=== PATIENT | female | born 1970 | race Caucasian/White ===

== ENCOUNTER 2022-07-09 00:59 | Day surgery (SDC) | payer OTHER, SELFPAY ==
[2022-06-30 16:00] VITALS: BMI 25.1
--- NOTE | 2022-07-08 13:25 | PM.HPGS ---
History of Present Illness History of Present Illness Consent: Risks, benefits, and alternatives have been discussed and questions answered. Patient agrees to proceed with procedure. Chief complaint: hx of colon polyps Narrative: Tamara Phillips is a 52 year old female who had a large sigmoid colon polyp removed about 3 years ago. Review of Systems Review of Systems: All systems reviewed & are unremarkable except as noted in HPI and below PMFSH Social History Social History Years smoked: 30 Smoking status: Current every day smoker Tobacco type: cigarettes Alcohol intake: current Alcohol use details: 1-2 glasses of wine each evening Substance use: never Substance use type: does not use Living arrangements: with family Spiritual care concerns: No Meds Home Medications and Allergies Home Medications Medication Instructions Recorded Confirmed Type fluoxetine 10 mg capsule 10 mg PO DAILY 06/30/22 07/09/22 History Allergies Allergy/AdvReac Type Severity Reaction Status Date / Time bupropion Allergy Mild HIVES Verified 07/09/22 09:58 Penicillins Allergy Unknown HIVES Verified 07/09/22 09:58 Exam Resp: Auscultation: clear to auscultation bilaterally Cardio: Rate: regular rate Rhythm: regular rhythm GI: GI Palp: Yes Soft to palpation and No Tenderness to palpation present (GI) Assessment and Plan Assessment and plan (1) Colon cancer screening: Code(s): Z12.11 - Encounter for screening for malignant neoplasm of colon Status: Acute Assessment and Plan: Colonoscopy with possible biopsy or polypectomy or cautery or injection of substances. (2) Personal history of colonic polyps: Code(s): Z86.010 - Personal history of colonic polyps Status: Acute
[2022-07-09 10:00] VITALS: BP 93/67; PULSE 76; RESP 16; TEMP 36.9; O2SAT 100
--- NOTE | 2022-07-09 10:05 | SUR.PREOP ---
PT STATED MENOPAUSE SINCE AGE 34
[2022-07-09] MEDS: LACTATED RINGERS 1,000 ML 150 ML IV CONT (10:11)
--- NOTE | 2022-07-09 10:38 | P.PNAN_ITS ---
Anes - Initial Pre Proc Eval Procedure: Operation Date: 07/09/22 11:00 Proposed Procedures p Screening Colonoscopy - Basil Michele MD Date/Time: 07/09/22 10:38 Surgeon: Basil Michele MD Pre Op Diagnosis: hx of colon polyps Patient Data Age: 52 Gender: F Height: 1.7 m Weight: 71.7 kg Last Vital Signs Temp 98.5 F 07/09/22 10:00 Pulse 76 07/09/22 10:00 Resp 16 07/09/22 10:00 BP 93/67 L 07/09/22 10:00 Pulse Ox 100 07/09/22 10:00 O2 Del Method Room Air 07/09/22 10:00 Allergies Allergy/AdvReac Type Severity Reaction Status Date / Time bupropion Allergy Mild HIVES Verified 07/09/22 09:58 Penicillins Allergy Unknown HIVES Verified 07/09/22 09:58 Home Medications Medication Instructions Recorded Confirmed Type fluoxetine 10 mg capsule 10 mg PO DAILY 06/30/22 07/09/22 History Patient hx anesthesia problems: none Family hx anesthesia problems: none Results Review: All pre-operative results and documents have been reviewed as part of the pre- operative evaluation. [facility] Social History Social History Years smoked: 30 Smoking status: Current every day smoker Tobacco type: cigarettes Alcohol intake: current Alcohol use details: 1-2 glasses of wine each evening Substance use: never Substance use type: does not use Living arrangements: with family Spiritual care concerns: No Anes - Eval Final PreProcedure Day of Procedure 07/09/22 10:38 Patient weight: normal Heart: regular rate and rhythm Lungs: clear to auscultation Airway: Mallampati scale class II Neurological: alert and oriented Last oral intake: >/= 8 hours ASA classification: II Emergent: no Anesthetic plan: proceed Anesthesia type and monitoring: general GIVS and standard monitoring Results Review: All pre-operative results and documents have been reviewed as part of the pre- operative evaluation. Informed Consent: The patient's anesthetic plan and its attendant risks and benefits were discussed with the patient/family/POA. Questions were solicited and answers provided to the satisfaction of the patient/family/POA.
[2022-07-09 11:15] VITALS: BP 122/79; PULSE 75; RESP 20; O2SAT 100
[2022-07-09 11:25] VITALS: BP 125/76; PULSE 63; RESP 27; O2SAT 100
[2022-07-09 11:35] VITALS: BP 135/88; PULSE 56; RESP 17; O2SAT 100
== END 2022-07-09 11:47 | disposition home or self-care (01) ==
PROVIDERS: PCP Physician Assistant; Visit Provider Internal Medicine Gastroenterology
PROC: 0DJD8ZZ Inspection of Lower Intestinal Tract, Via Natural or Artificial Opening Endoscopic (ICD-10-PCS; CPT 45378; principal; 2022-07-09 11:00)
DX: Z12.11 Encounter for screening for malignant neoplasm of colon (principal); D12.5 Benign neoplasm of sigmoid colon; K62.1 Rectal polyp; K57.30 Diverticulosis of large intestine without perforation or abscess without bleeding; F17.210 Nicotine dependence, cigarettes, uncomplicated; K63.5 Polyp of colon
CPT/HCPCS: 45380; 88305; J2704; J7120

== ENCOUNTER 2024-10-01 06:45 | Emergency (ER) | payer OTHER, SELFPAY ==
--- NOTE | ~2024-10-01 | XR_ITS ---
Left foot Technique: AP, oblique, and lateral views were obtained. Clinical History: Injury Findings: No acute fracture or dislocation is seen. Osseous alignment is anatomic. Joint spaces are p reserved without erosive or degenerative change. Soft tissues are unremarkable. Impression: Unremarkable left foot radiographs. Reviewed, dictated and finalized at location . [facility] Impression: Unremarkable left foot radiographs.
[2024-10-01 06:50] VITALS: BP 133/77; PULSE 91; RESP 18; TEMP 36.6; O2SAT 100
--- NOTE | 2024-10-01 07:37 | PC.NURSE ---
Xray at bedside
--- NOTE | 2024-10-01 07:37 | ED.GENADULT ---
HPI - General Adult General Chief complaint: Extremity Injury, Lower Stated complaint: left foot possibly broken? Time Seen by Provider: 10/01/24 06:52 History of Present Illness HPI narrative: 54-year-old female presents to the emergency department for evaluation for left foot pain. Patient reports she was walking up stairs last night when she missed a step and injured her foot. Patient states he did not have immediate pain but did go to bed and woke up and had more intense pain in the left mid foot. patient does report pain with weight-bearing. Patient denies any other pain or injury. Patient denies striking head denies loss of consciousness. Related Data Home Medications Medication Instructions Recorded Confirmed fluoxetine 10 mg capsule 10 mg PO DAILY 06/30/22 07/09/22 Allergies Allergy/AdvReac Type Severity Reaction Status Date / Time bupropion Allergy Mild HIVES Verified 10/01/24 06:49 Penicillins Allergy Unknown HIVES Verified 10/01/24 06:49 Review of Systems Review of Systems: All systems reviewed & are unremarkable except as noted in HPI and below PMFSH Social History Social History Years smoked: 30 Smoking status: Current every day smoker Tobacco type: cigarettes Alcohol intake: current Alcohol use details: 1-2 glasses of wine each evening Substance use: never Substance use type: does not use Living arrangements: with family Spiritual care concerns: No Exam Narrative: APPEARANCE: Well appearing, no pain, no distress, well-nourished. HEAD: normocephalic, atraumatic. EYES: PERRLA/EOMI, conjunctivae clear. NOSE: Normal no drainage EARS:TMS clear with good light reflex. THROAT: Pharynx clear, no exudate. NECK: Supple. No adenopathy, no masses. RESPIRATORY: Airway patent, respirations nonlabored. Clear to auscultation bilaterally, no rales, rhonchi, wheezing. CARDIOVASCULAR: Regular rate and rhythm without murmurs rubs or gallops. ABDOMINAL: Soft, nontender, nondistended, normal bowel sounds MUSCULOSKELETAL: Moves all extremities. Strength/ROM intact, No edema, No calf tenderness. NEURO: Alert. Cranial nerves II through XII intact. Good gait. Good coordination SKIN: Warm, dry. Normal Color Course Vital Signs Vital signs: Vital Signs Temperature 97.8 F 10/01/24 06:50 Pulse Rate 91 10/01/24 06:50 Respiratory Rate 18 10/01/24 06:50 Blood Pressure 133/77 10/01/24 06:50 Pulse Oximetry 100 10/01/24 06:50 Temperature 98 F 10/01/24 09:09 Pulse Rate 80 10/01/24 09:09 Respiratory Rate 16 10/01/24 09:09 Blood Pressure 143/77 H 10/01/24 09:09 Pulse Oximetry 98 10/01/24 09:09 Medical Decision Making MDM Narrative Medical decision making narrative: 54-year-old female presents to the emergency department for evaluation for left midfoot pain. Patient initially had no pain when she stumbled but pain worsened throughout the course of the night. Patient has no evidence of deformity ecchymosis or edema. X-rays were negative for acute fracture dislocation. Patient was provided Jacob wrap and crutches for limited weight-bearing. Suspect foot strain. Patient was updated results of her workup patient was encouraged close follow-up with her primary care physician and with Orthopedics. All questions concerns were addressed. Differential Diagnosis Differential Diagnosis: Foot fracture, foot sprain, foot contusion Vital Signs Vital Signs: Vital Signs Temperature 97.8 F 10/01/24 06:50 Pulse Rate 91 10/01/24 06:50 Respiratory Rate 18 10/01/24 06:50 Blood Pressure 133/77 10/01/24 06:50 Pulse Oximetry 100 10/01/24 06:50 Temperature 98 F 10/01/24 09:09 Pulse Rate 80 10/01/24 09:09 Respiratory Rate 16 10/01/24 09:09 Blood Pressure 143/77 H 10/01/24 09:09 Pulse Oximetry 98 10/01/24 09:09 Imaging Data Radiologist's impression: Impressions Foot X-Ray 10/01/24 07:46 Impression: Unremarkable left foot radiographs. Discharge Plan Discharge Clinical Impression: Strain of foot Patient Disposition: Home, Self-Care Condition: Stable Instructions: Antibiotic Form, Crutch Instructions (ED), Foot Sprain (ED) Additional Instructions: Tylenol and ibuprofen for pain control. crutches for limited weight-bearing. Have close follow-up with primary care physician. If you have any worsening symptoms and please call or return to the emergency department. Prescriptions: No Action fluoxetine 10 mg capsule 10 mg PO DAILY Follow-up/Referrals: Yana,CAL Carr [Primary Care Provider] -
[2024-10-01 09:09] VITALS: BP 143/77; PULSE 80; RESP 16; TEMP 36.6; O2SAT 98
== END 2024-10-01 09:10 | disposition home or self-care (01) ==
PROVIDERS: Emergency Provider Emergency Medicine; PCP Physician Assistant
DX: S96.912A Strain of unspecified muscle and tendon at ankle and foot level, left foot, initial encounter (principal); X58.XXXA Exposure to other specified factors, initial encounter; F17.210 Nicotine dependence, cigarettes, uncomplicated
CPT/HCPCS: 73630; 99283

== ENCOUNTER 2025-01-31 07:29 | Outpatient (CLI) | payer OTHER, SELFPAY ==
--- NOTE | 2025-01-31 | EST_ITS ---
Patient Info Name: Tamara Phillips Age: 55 years : 1970 Gender: Female Ht: 67 in Wt: 150 lbs BSA: 1.80 m2 Exam Date: 01/31/2025 8:52 AM Exam Location: Echo Lab Patient Status: Outpatient Admit Date: 01/31/2025 Staff Ordering Physician: YanaLilly PA-C Attending Provider: YanaLilly PA-C Exercise Technologist: Yolis Sanches RDCS Nurse: Lawanda Hernández APN Exam Type: CA stress test treadmill w NM Study Info Indications R07.9 - Chest pain, unspecified A pharmacological stress test was performed. Summary 1. Exercise capacity fair to good at 6-10 METS. 2. Normal stress test and stress ECG with near maximal exercise. 3. Please correlate with nuclear medicine images, reported separately. Protocol: Kennedy Stress ECG Details Stage: REST Duration (min): 1 min : 23 sec Speed (mph): 0.0 Grade (%): 0 HR (bpm): 72 SBP (mmHg): 140 DBP (mmHg): 93 METS: --- Stage: REST Duration (min): 5 min : 48 sec Speed (mph): 0.0 Grade (%): 0 HR (bpm): 82 SBP (mmHg): 140 DBP (mmHg): 93 METS: --- Stage: STAGE 1 Duration (min): 1 min : 0 sec Speed (mph): 1.7 Grade (%): 10 HR (bpm): 102 SBP (mmHg): 140 DBP (mmHg): 93 METS: --- Stage: STAGE 1 Duration (min): 2 min : 0 sec Speed (mph): 1.7 Grade (%): 10 HR (bpm): 108 SBP (mmHg): 140 DBP (mmHg): 93 METS: --- Stage: STAGE 1 Duration (min): 3 min : 0 sec Speed (mph): 1.7 Grade (%): 10 HR (bpm): 104 SBP (mmHg): 192 DBP (mmHg): 100 METS: --- Stage: STAGE 2 Duration (min): 1 min : 0 sec Speed (mph): 2.5 Grade (%): 12 HR (bpm): 117 SBP (mmHg): 203 DBP (mmHg): 97 METS: --- Stage: STAGE 2 Duration (min): 2 min : 0 sec Speed (mph): 2.5 Grade (%): 12 HR (bpm): 130 SBP (mmHg): 194 DBP (mmHg): 99 METS: --- Stage: STAGE 2 Duration (min): 3 min : 0 sec Speed (mph): 2.5 Grade (%): 12 HR (bpm): 139 SBP (mmHg): 194 DBP (mmHg): 99 METS: --- Stage: STAGE 3 Duration (min): 0 min : 30 sec Speed (mph): 3.4 Grade (%): 14 HR (bpm): 150 SBP (mmHg): 194 DBP (mmHg): 99 METS: --- Stage: RECOVERY Duration (min): 0 min : 29 sec Speed (mph): 0.0 Grade (%): 0 HR (bpm): 143 SBP (mmHg): 208 DBP (mmHg): 99 METS: --- Stage: RECOVERY Duration (min): 1 min : 29 sec Speed (mph): 0.0 Grade (%): 0 HR (bpm): 112 SBP (mmHg): 205 DBP (mmHg): 103 METS: --- Stage: RECOVERY Duration (min): 2 min : 29 sec Speed (mph): 0.0 Grade (%): 0 HR (bpm): 103 SBP (mmHg): 205 DBP (mmHg): 103 METS: --- Stage: RECOVERY Duration (min): 3 min : 29 sec Speed (mph): 0.0 Grade (%): 0 HR (bpm): 101 SBP (mmHg): 183 DBP (mmHg): 104 METS: --- Stage: RECOVERY Duration (min): 4 min : 29 sec Speed (mph): 0.0 Grade (%): 0 HR (bpm): 91 SBP (mmHg): 183 DBP (mmHg): 104 METS: --- Stage: RECOVERY Duration (min): 5 min : 29 sec Speed (mph): 0.0 Grade (%): 0 HR (bpm): 95 SBP (mmHg): 156 DBP (mmHg): 105 METS: --- Stage: RECOVERY Duration (min): 6 min : 29 sec Speed (mph): 0.0 Grade (%): 0 HR (bpm): 92 SBP (mmHg): 155 DBP (mmHg): 104 METS: --- Stage: RECOVERY Duration (min): 7 min : 29 sec Speed (mph): 0.0 Grade (%): 0 HR (bpm): 91 SBP (mmHg): 155 DBP (mmHg): 104 METS: --- Stage: RECOVERY Duration (min): 8 min : 29 sec Speed (mph): 0.0 Grade (%): 0 HR (bpm): 91 SBP (mmHg): 155 DBP (mmHg): 104 METS: --- Stage: RECOVERY Duration (min): 8 min : 46 sec Speed (mph): 0.0 Grade (%): 0 HR (bpm): 90 SBP (mmHg): 146 DBP (mmHg): 104 METS: --- Rest HR: 82 bpm Peak HR: 151 bpm Rest Sys BP: 140 mmHg Peak Sys BP: 208 mmHg Max Pred HR: 164 bpm % Max Pred HR: 92 % Target HR: 139 bpm Max RPP: 31,408 bpm*mmHg Morgan Score: -[address] Seg Deviation: 2 mm Total Time: 6 min : 30 sec Rest Kaba BP: 93 mmHg Peak Kaba BP: 99 mmHg Angina Score: None Total METS: 8.0 Resting ECG Normal sinus rhythm with a ventricular rate of 70 beats per minute. No ischemic ST T wave changes. Stress ECG No abnormal ST/T wave changes with exercise. Arrhythmias None. Report Signatures
--- NOTE | ~2025-01-31 | NM_ITS ---
EXAMINATION: NM stress w perf spect multi DATE: 01/31/2025 10:37 INDICATION: Chest pain. TECHNIQUE: Rest images were obtained following intravenous administration of 11.5 mCi Tc99m tetrofosm in (Myoview). The patient performed an exercise activity. At peak exercise, 34.7 mCi Tc99m tetrofosmi n (Myoview) was administered intravenously, and stress images were obtained. Data was reconstructed i nto short axis and horizontal and vertical long axis SPECT images. Gated SPECT images were also obtai geraldine. COMPARISON: None. FINDINGS: There is no definite reversible or fixed perfusion abnormality to suggest ischemia or infar ction. There is no segmental wall motion abnormality. Left ventricular ejection fraction measures 6 4%. IMPRESSION: 1. No definite ischemia or infarct. 2. Normal left ventricular ejection fraction measuring 64%. Reviewed, dictated and finalized at location B.
--- OUTSIDE RECORDS SUMMARY | 2025-01-31 07:36 | XMS_ITS | Data Portability ---
[facility] Address [address] [place] [address] Care Team Providers Care Guide Visitor Name Role Phone HERMANZENON DOOLEY Primary Care Provider Unavailab le Assessment No assessment recorded. Plan of Treatment Reminders Order Date Submit Date Provider Last Modified By Organization Details Last Modified Time Details Appointments None recorded. Lab TSH + free T4, serum 2024 025 [facility], [address] [place] [address], [address], 5 04:15:04 CMP, serum or plasma 2024 025 [facility], [address] [place] [address], [address], 5 04:15:04 CBC w/ auto diff 2024 025 [facility], [address] [place] [address], [address], 5 04:15:04 cobalamin and folate panel, serum 2024 025 [facility], [address] [place] [address], [address], 5 04:15:04 lipid panel, serum 2024 025 [facility], [address] [place] [address], [address], 5 04:15:03 vitamin D, 25-hydroxy , total, serum 2024 025 [facility], [address] [facility] [address], [place], [address], 04:15:04 HbA1c (hemoglobi n A1c), blood 2024 025 [facility], [address] [facility], [facility] [address], [place], [address], 04:15:03 Referral None recorded. Procedures treadmill nuclear stress test (PROC) - Authorizat ion approved#[id number], effective 01/17/2025 - 03/03/2025 , for procedure code 25709 2024 025 [facility] ([facility] [address], [place], [address], 09:51:35 Surgeries None recorded. Imaging CT, chest, w/ contrast 2024 025 [facility], [address], [place], [address], 18:00:58 Medication Orders fluoxetine 10 mg capsule 2024 025 [id number], [address] [facility], [place], [place], [id number], 11:03:04 Patient TargetsNo targets recorded. Patient InstructionsNo instructions recorded. Reason for Referral None Reported. Problems Name Problem SNOMED Code Status Onset Date Resolution Date Notes Provider Name and Address Organization Details Recorded Time Body mass index 20-24 - normal 788347962 Active 2024 Viv Fuchs MA null, [place] - [facility] 10:24:30 Smoker 32359765 Active 2024 DIANE Cano Attn: Donald g,[address] [facility], [place], [address], [facility] 5 00:54:46 Chest pain 15778465 Active 2024 DIANE Cano Attn: Donald brooks,[address] [place], [address], [facility] 5 00:55:09 Hyperlipidemia 83951203 Active 2024 DIANE Cano Attn: Donald brooks,[address] [place], [address], [facility] - [facility] 5 00:55:17 Long-term drug therapy Active 2024 DIANE Cano Attn: Donald brooks,[address] [place], [address], [facility] - [facility] 5 00:55:27 Feeling irritable 81754428 Active 2024 DIANE Cano Attn: Donald brooks,[address] [place], [address], [facility] - [facility] 5 00:56:00 Problem Notes None recorded. Medical Equipment None Reported. Allergies Allergen ID Allergen Name Allergen Category Reaction Reaction Severity Criticality Documentation Date Start Date Code Code System Note Provider Name and Address Organization Details Recorded Time 144476 Product containin g penicilli n (product) medicatio n Not available Not available Not available 01/10/2025 73429 8001 SNOMED Not Available Not Available Not Available Medications Name Sig Start Date Stop Date Status Note LastModified by Organization Details LastModified Time sulfamethoxazol e 400 mg-trimethoprim 80 mg tablet one tab po bid active Not Available Not Available No t Available fluoxetine 10 mg capsule TAKE 1 CAPSULE BY MOUTH EVERY DAY active Not Available Not Available No t Available Vitals Date Recorded Body height Body mass index (BMI) Body weight Oxygen saturation Oxygen saturation in Arterial blood by Pulse oximetry Heart rate Systolic blood pressure Diastolic blood pressure Provider Name and Address Organization Details Last Updated DateTime 5 170.18 cm 23.9 kg/m2 24478.2 7 g 98 % 98 % 70 /min 140 mm[Hg] 82 mm[Hg] Viv Fuchs MA [place] 10:27:01 Date Recorded Respiratory rate Systolic blood pressure Diastolic blood pressure Provider Name and Address Organization Details Last Updated DateTime 01/10/2025 18 /min 140 mm[Hg] 80 mm[Hg] DIANE Cano Attn: Accounting, [address] [facility], [place], [address], [place] - [facility] 01/10/2025 11:00:45 Social History Question Answer Notes LastModified by Organizat ion Details LastModified Time Tobacco Smoking Status Former Smoker Viv Fuchs MA null, [place] - [facility] 01/10/2025 11:45:30 Do You Have An Advance Directive? Yes Information n ot available 01/10/2025 What Is Your Level Of Alcohol Consumption? Moderate Wine Information not available 01/10/2025 Are You Blind Or Do You Have Difficulty Seeing? Yes Information n ot available 01/10/2025 What Is Your Level Of Caffeine Consumption? Moderate Information not available 01/10/2025 In The 14 Days Before Symptom Onset, Have You Had Close Contact With A Laboratory-confirm ed COVID-19 While That Case Was Ill? No Information n ot available 01/10/2025 In The 14 Days Before Symptom Onset, Have You Had Close Contact With A Person Who Is Under Investigation For COVID-19 While That Person Was Ill? No Information not available 01/10/2025 Have You Been To An Area Known To Be High Risk For COVID-19? No Information not available 01/10/2025 Are You Currently Employed? Yes Information not available 01/10/2025 Are You Deaf Or Do You Have Serious Difficulty Hearing? No Information not available 01/10/2025 What Type Of Diet Are You Following? 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 No Information not available 01/10/2025 What Was The Date Of Your Most Recent Tobacco Screening? 01/10/2025 Information not available 01/10/2025 What Is Your Current Pack Years? 10-19packyear s Information not available 01/10/2025 What Is Your Relationship Status? Information not available 01/10/2025 Do You Use Your Seat Belt Or Car Seat Routinely? Yes Information not available 01/10/2025 Do You Have Smoke And Carbon Monoxide Detectors In Your Home? Yes Information not available 01/10/2025 How Much Tobacco Do You Smoke? No Information not available 01/10/2025 Do You Feel Stressed (tense, Restless, Nervous, Or Anxious, Or Unable To Sleep At Night)? [id number] Information not available 01/10/2025 Do You Use Any Illicit Or Recreational Drugs? No Information not available 01/10/2025 Do You Use Sunscreen Routinely? Yes Information not available 01/10/2025 Has Tobacco Cessation Counseling Been Provided? No Information not available 01/10/2025 Do You Or Have You Ever Used Any Other Forms Of Tobacco Or Nicotine? No Information not available 01/10/2025 Sex: Female Functional Status Question Answer Note LastModified by Organization D etails LastModified Time Are you able to care for yourself? Yes Information n ot available 01/10/2025 What is your exercise level? None Information not available 01/10/2025 Mental Status None recorded. Family History Nothing Reported. Medical History Condition Response Coronary Artery Disease N Other N High Blood Pressure N Atrial Fibrillation N Kidney or Bladder Problems N Thyroid Problems N GI Problems N Depression N COPD N Blood Clots N Have you had a mammogram in the last yea r? N Skin Problems N Anemia N Heart Attack ([place]) N Anxiety Disorder N Diabetes N Muscle, Joint, or Bone Problems N Seizures/Epilepsy N Have you had a colonoscopy in the last 1 0 years? N Acid Reflux (GERD) Y Cancer N Stroke N Asthma N Allergies N Have you had a PSA blood test in the las t year? N High Cholesterol N Hepatitis N Liver Disease N Headaches N Heart Failure N Osteoporosis N Gynecological History Statement/Question Response Menses Monthly N If Post Menopausal, Age at Menopause 46 Obstetrics History GPAL:G 3 P 3 0 0 3 Type Value Multiple Births 0 Full Term 3 Induced 0 Spontaneous 0 Premature 0 Living 3 Total 3 Immunizations Vaccine Type Date Status Note Provider Nam e and Address Organization Details Recorded Time COVID-19, mRNA, LNP-S, PF, 30 mcg/0.3 mL dose 02/15/2021 completed Viv Fuchs MA null, [place] - [facility] 01/10/2025 10:23:39 COVID-19, mRNA, LNP-S, PF, 30 mcg/0.3 mL dose 03/10/2021 completed Viv Fuchs [place] null, [place] - [facility] 01/10/2025 10:23:39 Tdap 09/08/2022 completed AGATA Camargo, [place] - [facility] 01/10/2025 10:23:39 Past Encounters Encounter ID Performer Location Encounter Start Date Encounter Closed Date Diagnosis/Indication Diagnosis SNOMED-CT Code Diagnosis ICD10 Code Diagnosis Note [id number] DIANE Cano [facility] [place] [address] [place] [address] 01/10/2025 09:51:36 01/10/2025 11:22:38 Renewal of prescription 090451282 Z76.0 Refill on fluoxetine 10 mg daily Body mass index 20-24 - normal 910932893 Z68.23 BMI is 23.9 Adult heal th examination 271475821 Z00.01 Annual wellness exam completed with labs ordered fasting Smoker 84574695 F17.200 Patient is smoker. She is not interested in cessation at this time Chest pain 96432470 R07. 9 Refer for treadmill nuclear stress testing with continued episodic chest pain with history of hyperlipid emia and tobacco dependence Hyperlipidemia 96282230 E78.5 Fasting lipid panel is due patient is not currently on any medication Diabetes m ellitus screening 321501171 Z13.1 A1c screening due Thyroid di sorder screening 068903357 Z13.29 Thyroid function testing due Long-term drug therapy 244555092 Z79.891 cmp, cbc and b12, folate labs are due Endocrine/ metabolic screening 510223717 Z13.228 Screening vitamin-D due CT of chest abnormal 772 4371811 1615623 R93.89 Follow-up CT of the chest with contrast is due for a history of abnormalit y in the past that the patient did not follow-up on Feeling irritable 164225 07 R45.4 Patient is stable on fluoxetine 10 mg daily Health Concerns Section Related Observation LastModified by Organization Detai ls LastModified Time None Recorded Concern Status LastModified by Organization Details LastModified Time None Recorded Advance Directives Directive Y: Payers Encounter Date Sequence Insurance Name Policy Number Policy Darby Covered Member ID Darby Member ID Guarantor Name 01/10/2025 1 [facility] [id number] Tamara Phillips [id number] Tamara Jenny Phillips Notes Date Note Type Note Provider Name and Address Organization Details Recorded Time 01/10/20 25 text/ht ml Angina/Chest PainReported bypatient.Location:chest;radiates to the left arm Quality:pressure;heaviness Severity:not limiting Duration:lasts seconds Onset/Timing:has noted for months Context:exertional;at rest Alleviating Factors:nothing gives relief Aggravating Factors:nothing makes it worse Associated Symptoms:no dyspnea; no decrease in exercise capacity; no fatigue; no nocturnal episodes; no resting episodes; no associated palpitations; no associated dizzinessAnxiety/DepressionReport ed bypatient.Notes:Patient takes fluoxetine 10 mg daily and is stable without any acute complaints or concernsHyperlipidemiaReported bypatient.Notes:Patient has a history of hyperlipidemia but has declined any medication to this point Patient is here to reestablish and have her annual wellness exam with labs ordered. DIANE Cano Attn: Accounting, [address] [place], [address], [place] - [facility] 01/21/2025 00:56:18 OBGyn Episode No OBEpisode recorded.
--- OUTSIDE RECORDS SUMMARY | 2025-01-31 07:36 | XMS_ITS | Data Portability ---
Author Organization [place] - [facility] [employer], Main Office Address [address] [place] [address] Assessment Encounter Date Assessment Date Assessment LastModified by Organization Details LastModified Time 07/29/2023 07/29/2023 mammogram was today colonoscopy polyps repeat 2024 pap smear UTD [email or web address] Not available 07/29/2023 16:26:22 Plan of Treatment Reminders Order Date Submit Date Provider Last Modified By Organization Details Last Modified Time Details Appointments None recorded. Lab lipid panel, serum 2022 024 [email or web address] Not available 4 09:49:24 CMP, serum or plasma 2022 024 [email or web address] Not available 4 09:49:24 Referral None recorded. Procedures None recorded. Surgeries None recorded. Imaging exercise stress echocardiog isa 2022 023 [email or web address] 4 [facility], [address] [place] [address] [address], [place], [address], 4 14:28:34 Medication Orders sulfamethox azole 800 mg-trimetho prim 160 mg tablet 2022 023 [id number], [address], [place], [id number], 3 16:16:51 rosuvastati n 5 mg tablet 2022 023 [id number], [address], [place], [id number], 3 16:16:51 Patient TargetsNo targets recorded. Patient InstructionsNo instructions recorded. Reason for Referral None Reported. Results Created Date Observation Date Name Description Value Unit Range Abnormal Flag Note LastModifiedBy Organization Detail LastModifiedTime 05/14/20 22 05/14/2022 CT, chest , w/o contr ast No observ ation record ed. [id number] [place] [address], [place], [address], 01/19/2023 16:58:31 05/17/20 22 05/14/2022 MAMMO , scree carol ann, digit al, bilat eral No observ ation record ed. [id number] [facility] [address] , [place], [address], 01/19/2023 16:58:31 07/13/20 22 07/09/2022 colon oscop y scree carol ann (PROC ) No observ ation record ed. [email or web address] [facility] [address] [facility], [place], [address], 07/29/2023 15:58:11 Result Notes None recorded. 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 Not Available [facility] 3 16:56:50 Fracture of calcaneus 852610739 Active Not Available [facility] 3 16:56:51 Vitamin D deficiency 36073313 Active Not Available [facility] 3 16:56:51 Fever 080149098 Active Not Available [facility] 3 16:56:51 Postviral cough 756553097 Active 2021 Not Available [facility] 3 16:56:51 Multiple nodules of lung 855129046 Active 2021 Not Available [facility] 3 16:56:51 Viral syndrome 563801747 Active Not Available [facility] 3 16:56:51 Anxiety 21580316 Active 2021 Not Available [facility] 3 16:56:51 Feeling irritable 71344725 Active 2021 Not Available [facility] 3 16:56:51 Mixed hyperlipid emia 173848952 Active 2022 DIANE Cano [address], [address], [place], [address] , [employer] 3 16:14:37 Atypical chest pain 245273755 Active 2022 DIANE Cano [address], [address], [place], [address] , [employer] 3 16:15:23 Superficia l injury of hand with infection 21107787 Active 2022 DIANE Cano [address], [address], [place], [address] , [employer] 3 16:16:17 Problem Notes None recorded. Procedures Surgical History Date Name Laterality Status Provider Name and Address Organization Details Recorded Time 07/09/20 22 colonoscopy completed Not Available [facility] 01/20/20 16:55:42 08/15/20 19 Date of Last Colonoscopy completed Not Available [facility] 01/19/2023 16:55:41 08/15/20 19 Colonoscopy completed Not Available [facility] 01/20/20 23 16:55:42 02/11/20 15 Most Recent Bone Density completed Not Available [facility] 01/19/2023 16:55:41 11/21/18 80 Brain Surgery completed Not Available [facility] 2022 16:55:42 Imaging Results Imaging Date Name Status LastModified by Organiz ation Details LastModified Time 05/14/2022 MAMMO, screening, digital, bilateral completed [id number] [facility] [address] , [place], [address], 01/19/2023 16:58:31 05/14/2022 CT, chest, w/o contrast completed [id number] [facility] [address], [place], [address], 01/19/2023 16:58:31 07/09/2022 colonoscopy screening (PROC) completed [address] - [address], [place], [address], 07/29/2023 15:58:11 Procedure Notes None recorded. Medical Equipment None Reported. Allergies Allergen ID Allergen Name Allergen Category Reaction Reaction Severity Criticality Documentation Date Start Date Code Code System Note Provider Name and Address Organization Details Recorded Time 27323 Product containin g penicilli n (product) medicatio n hives Not available Not available 01/19/2023 30079 8001 SNOMED Not Available [facility] 16:58:27 Medications Name Sig Start Date Stop Date Status Note LastModified by Organization Details LastModified Time doxycycline hyclate 100 mg capsule Take 1 capsule twice a day by oral route with meals. active Not Available Not Available No t Available desoximetas one 0.25 % topical cream APPLY A THIN LAYER TO THE AFFECTED AREA(S) BY TOPICAL ROUTE 2 TIMES PER DAY ; RUB IN GENTLY AND COMPLETEL Y active Not Available Not Available No t Available clindamycin HCl 300 mg capsule TK 1 C PO TID TAT 03/19 completed Not Available Not Available Not Available azithromyci n 250 mg tablet TAKE 2 TABLETS (500 MG) BY ORAL ROUTE ONCE DAILY FOR 1 DAY THEN 1 TABLET (250 MG) BY ORAL ROUTE ONCE DAILY FOR 4 DAYS 06/21 completed Not Available Not Available Not Available benzonatate 200 mg capsule Take 1 capsule 3 times a day by oral route. active Not Available Not Available No t Available Medrol (Blake) 4 mg tablets in a dose pack Take by oral route as directed 07/19 completed Not Available Not Available Not Available prednisone 20 mg tablet 06/12 completed Not Available Not Available Not Available clindamycin HCl 150 mg capsule active Not Available Not Available Not Available Tamiflu 75 mg capsule Take 1 capsule every day by oral route. active Not Available Not Available No t Available sulfamethox azole 800 mg-trimetho prim 160 mg tablet TAKE 1 TABLET BY MOUTH EVERY 12 HOURS WITH MEALS active Not Available Not Available No t Available fluoxetine 10 mg capsule TAKE 1 CAPSULE BY MOUTH EVERY DAY 2022 active Not Available Not Available Not Avai lable codeine 10 mg-guaifene sin 100 mg/5 mL oral liquid TAKE 10 ML BY MOUTH EVERY 4 TO 6 HOURS NEEDED 07/19 completed Not Available Not Available Not Available cefuroxime axetil 500 mg tablet Take 1 tablet every 12 hours by oral route. 07/19 completed Not Available Not Available Not Available hydrocodone 10 mg-chlorphe niramine 8 mg/5 mL oral susp extend.rel 12hr Take 5 mL as needed by oral route at bedtime. active Not Available Not Available No t Available Vitamin D2 1,250 mcg (50,000 unit) capsule take one capsule PO once weekly 02/21 completed Not Available Not Available Not Available ezetimibe 10 mg tablet TK 1 T PO QD IN THE DREA 03/06 completed Not Available Not Available Not Available rosuvastati n 5 mg tablet TAKE 1 TABLET BY MOUTH EVERY DAY AT BEDTIME active Not Available Not Available No t Available nitrofurant oin monohydrate /macrocryst als 100 mg capsule TAKE 1 CAPSULE BY MOUTH EVERY 12 HOURS WITH MEALS FOR 7 DAYS 07/29 completed Not Available Not Available Not Available Vitamin D3 2019 active Not Available Not Available Not Avai lable Symbicort 80 mcg-4.5 mcg/actuati on HFA aerosol inhaler Inhale 2 puffs twice a day by inhalatio n route. active Not Available Not Available No t Available Suprep Bowel Prep Kit 17.5 gram-3.13 gram-1.6 gram oral solution MIX AND DRINK UTD 03/19 completed Not Available Not Available Not Available Chantix Starting Month Box 0.5 mg (11)-1 mg (42) tablets in dose pack use as directed 03/06 completed Not Available Not Available Not Available Vicodin ES 7.5 mg-300 mg tablet active Not Available Not Available No t Available Vitamin B12 takes daily 2015 active Not Available Not Available Not Kylie labemile Vitals Date Recorded Body mass index (BMI) Body height Oxygen saturation Oxygen saturation in Arterial blood by Pulse oximetry Heart rate Respiratory rate Body temperature Body weight Systolic blood pressure Diastolic blood pressure Provider Name and Address Organization Details Last Updated DateTime 1 24.7 kg/m2 170.82 cm 98 % 98 % 94 /min 16 /min 97.9 [degF] 23463.1 9 g 128 mm[Hg] 76 mm[Hg] Not Available [facility] 3 16:56:01 Date Recorded Body mass index (BMI) Body height Oxygen saturation Oxygen saturation in Arterial blood by Pulse oximetry Heart rate Respiratory rate Body temperature Body weight Systolic blood pressure Diastolic blood pressure Provider Name and Address Organization Details Last Updated DateTime 2 26.4 kg/m2 170.82 cm 97 % 97 % 83 /min 16 /min 97.5 [degF] 30679.2 7 g 120 mm[Hg] 80 mm[Hg] Not Available [facility] 3 16:56:01 Date Recorded Body weight Body mass index (BMI) Body height Body temperature Heart rate Oxygen saturation Oxygen saturation in Arterial blood by Pulse oximetry Systolic blood pressure Diastolic blood pressure Provider Name and Address Organization Details Last Updated DateTime 3 19732.9 6 g 25.4 kg/m2 170.18 cm 97.8 [degF] 77 /min 98 % 98 % 124 mm[Hg] 70 mm[Hg] Chantal Estes RN [facility] [employer] 3 15:50:06 Date Recorded Systolic blood pressure Diastolic blood pressure Provider Name and Address Organization Details Last Updated DateTime 07/29/2023 110 mm[Hg] 70 mm[Hg] DIANE Cano [address], [facility] [address], [place], [address], [place] [facility] [employer] 07/29/2023 16:26:30 Social History Question Answer Notes LastModified by Organizat ion Details LastModified Time Tobacco Smoking Status Former Smoker Not Available [facility] 01/19/2023 16:55:33 What Is Your Level Of Alcohol Consumption? Moderate [id number] Information not available 01/19/2023 What Is Your Level Of Caffeine Consumption? Moderate [id number] Information not available 01/19/2023 How Much Tobacco Do You Chew? None [id number] 5172 Information not available 01/19/2023 In The 14 Days Before Symptom Onset, Have You Had Close Contact With A Laboratory-confir med COVID-19 While That Case Was Ill? No MIGRATION.[id number] 3388 Information not available 01/19/2023 In The 14 Days Before Symptom Onset, Have You Had Close Contact With A Person Who Is Under Investigation For COVID-19 While That Person Was Ill? No [id number].312110 8174 Information not available 01/19/2023 Are You Currently Employed? Yes [email or web address] Information not available 07/28/2023 What Type Of Diet Are You Following? REGULAR [id number].[id number] 4711 Information not available 01/19/2023 Do You Or Have You Ever Used E-cigarettes Or Vape? 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 No MIGRATION.057037 9289 Information not available 01/19/2023 Are There Any Guns Present In Your Home? Yes MIGRATION.115156 3139 Information not available 01/19/2023 Do You Use Insect Repellent Routinely? No [email or web address] Information not available 07/28/2023 What Was The Date Of Your Most Recent Tobacco Screening? 03/06/2021 [id number].[id number] 4122 Information not available 01/19/2023 What Is Your Relationship Status? MIGRATION.617796 8521 Information not available 01/19/2023 Do You Use Your Seat Belt Or Car Seat Routinely? Yes MIGRATION.913968 2355 Information not available 01/19/2023 Do You Have Smoke And Carbon Monoxide Detectors In Your Home? Yes MIGRATION.233877 7624 Information not available 01/19/2023 Are You Passively Exposed To Smoke? No MIGRATION.795854 9055 Information not available 01/19/2023 Do You Or Have You Ever Used Smokeless Tobacco? Never Used Smokeless Tobacco MIGRATION.680253 7458 Information not available 01/19/2023 How Much Tobacco Do You Smoke? No MIGRATION.807498 0034 Information not available 01/19/2023 Do You Use Any Illicit Or Recreational Drugs? No MIGRATION.310567 9449 Information not available 01/19/2023 Do You Use Sunscreen Routinely? Yes [email or web address] Information not available 07/28/2023 Have You Recently Traveled Abroad? No MIGRATION.358323 2179 Information not available 01/19/2023 Do You Have Any Dietary Restrictions? No MIGRATION.969868 8837 Information not available 01/19/2023 Do You Or Have You Ever Used Any Other Forms Of Tobacco Or Nicotine? No MIGRATION.214603 7771 Information not available 01/19/2023 Sex: Unknown Functional Status Question Answer Note LastModified by Organizat ion Details LastModified Time What is your exercise level? Heavy [id number] Information not available 01/19/2023 Mental Status None recorded. Family History Relationship Description Onset Age of this Age Resolved Age Notes LastModified by Organization Details LastModified Time Maternal Grandmother Malignant tumor of lung [email or web address] Not available 06/2023 15:45:55 Maternal Grandfather Myocardial infarction [id number] Not available 01/19/2023 16:55:42 Paternal Grandmother Cerebrovascu lar accident [email or web address] Not available 07/29/2023 15:45:55 Paternal Grandmother Hypertensive disorder [id number] Not available 01/19/2023 16:55:42 Father No current problems or disability [email or web address] Not available 15:45:55 Father General health good [email or web address] Not available 0 07/29/2023 15:45:55 Mother No current problems or disability [email or web address] Not available 15:45:55 Medical History Condition Response CANCER: SPECIFY Y DEPRESSION (INCLUDING POST ) Y HYPERTENSION N Gynecological History Statement/Question Response Date of Last Pap 11/21/2013 Date of Last Mammogram 02/10/2015 Date of Last Colonoscopy 08/15/2019 Most Recent Bone Density 02/10/2015 Sexually Active? Y Obstetrics History GPAL:G 0 P 0 0 0 0 Immunizations Vaccine Type Date Status Note Provider Nam e and Address Organization Details Recorded Time COVID-19, mRNA, LNP-S, PF, 30 mcg/0.3 mL dose 1 completed Not Available [facility] 01/19/2023 16:58:24 Tdap 2 completed Not Available [facility] 01/19/2023 16:58:25 Influenza, split virus, quadrivalent, preservative 0 completed Not Available [facility] 01/19/2023 16:58:25 Past Encounters Encounter ID Performer Location Encounter Start Date Encounter Closed Date Diagnosis/Indication Diagnosis SNOMED-CT Code Diagnosis ICD10 Code Diagnosis Note [id number] [facility] [address] [place] [address] 03/06/2021 00:00:00 03/20/2021 19:45:23 [id number] [facility] [address] [place] [address] 04/16/2022 00:00:00 04/16/2022 17:00:16 [id number] DIANE Cano [facility] [address] [place] [address] 07/29/2023 15:45:41 07/29/2023 16:21:28 Adult health examination 497066885 Z00.01 well exam completed Mixed hyperlipidemia 267 446569 E78.2 LDL 155. Trigs mild elevation. start rosuvastat in 5mg qhs. repeat labs fasting in nov. Anxiety 06683163 F41.9 stable on fluoxetine 10mg daily Atypical chest pain 1025 29439 R07.89 mid-sterna l chest pain randomly, last only seconds. Risk factors include: dyslipidem ia, tobacco use and fam hx of CAD. refer for exercise stress echo Superficia l injury of hand with infection 07761607 L08.9 right palm with blistering type papular lesion vertical 1cm size mid-palm. CT of chest abnormal 503 7872649 0335324 R93.89 pt was referred to pulmonary for f/u on interstiti al/inflamm atory type changes on CT scan chest. She did not f/u with them . Pt was encouraged to please reach out to schedule with [facility] Indigo Badillo NP for evaluation f/u on this CT scan to determine further diagnostic needs. Health Concerns Section Related Observation LastModified by Organization Detai ls LastModified Time None Recorded Concern Status LastModified by Organization Details LastModified Time None Recorded Advance Directives Directive None Recorded Payers Encounter Date Sequence Insurance Name Policy Number Policy Darby Covered Member ID Darby Member ID Guarantor Name 07/29/2023 1 [facility] [id number] Tamara Phillips [id number] Tamara Phillips Notes Date Note Type Note Provider Name and Address Organization Details Recorded Time 03/06/2021 text/html Generic HPI TemplateReported bypatient.Notes:Pt presents today for yearly wellness exam. Pt has hx of polyps in colonoscopy two years ago and would like another order placed. Not Available [employer] 03/20/2021 19:45:23 04/16/2022 text/html Anxiety/Depressi onRep orted bypatient.Quality:sym ptoms improved; Doesnt matter time of day. Severity:denies suicidal ideations; able to maintain relationships; does not interfere with activities of daily living Context:no major life stressors Modifying Factors:medications as directed Associated Symptoms:denies homicidal ideations; no significant weight gain; no significant weight loss; no visual/auditory hallucinations; no delusions; no shortness of breath; mood good; no anxiety; no crying spells; no panic; no isolation; sleeping well; appetite good; energy good; no apathy; maintaining functionality Notes:stable on fluoxetine 10mg daily. Not Available [employer] 04/16/2022 17:00:16 07/29/2023 text/html Angina/Chest PainReported bypatient.Location: est; substernal Quality:pressure;heav yness Severity:not limiting Duration:lasts minutes Onset/Timing:intermit tent Context:exertional Aggravating Factors:nothing makes it worse Associated Symptoms:no dyspnea; no decrease in exercise capacity; no fatigue; no nocturnal episodes; no resting episodes; no associated palpitations; no associated dizzinessAnxiety/Depr essionReported bypatient.Severity:de nies suicidal ideations; able to maintain relationships; does not interfere with activities of daily living Context:no major life stressors Modifying Factors:rx Associated Symptoms:denies homicidal ideations; no significant weight gain; no significant weight loss; no visual/auditory hallucinations; no delusions; no shortness of breathNotes:stable on prozac wellness DIANE Cano [address] [facility] [address], [place], [address], [facility] 08/18/2023 22:30:04 OBGyn Episode No OBEpisode recorded.
--- OUTSIDE RECORDS SUMMARY | 2025-01-31 07:36 | XMS_ITS | Clinical Summary ---
Author Organization [facility] Address [address] [place] [address] Phone Care Team Providers Care Ancillary Services Manager Therapy Name Role Phone Unavailable Primary Care Provider Unavailabl e Allergies Active Allergy Reactions Criticality Noted Date Comments Penicillins Hives High 07/20/2010 Medications ibuprofen (ADVIL) 200 mg Oral tablet Take 400 mg by mouth every 6 hours as needed. 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 Gender Identity Not on file Sexual Orientation Not on file Last Filed Vital Signs Vital Sign Reading Time Taken Comments Blood Pressure 130/64 07/20/2010 12:50 PM CDT Pulse 76 07/20/2010 12:50 PM CDT Temperature 35.8 C (96.4 F) 07/20/2010 10:50 AM CDT Respiratory Rate 20 07/20/2010 12:50 PM CDT Oxygen Saturation 98% 07/20/2010 12:50 PM CDT Inhaled Oxygen Concentration - - Weight 65.8 kg (145 lb) 07/20/2010 10:50 AM CDT Height 170.2 cm (5' 7 ) 07/20/2010 10:50 AM CDT Body Mass Index 22.71 07/20/2010 10:50 AM CDT Plan of Treatment Health Maintenance Due Date Last Done Comments DTAP/TDAP/TD VACCINES (1 - Tdap) 01/21/1988 HEPATITIS B VACCINES (1 of 3 - 19+ 3-dose series) 12/1987 CERVICAL CANCER SCREENING 1999 BREAST CANCER SCREENING 2009 COLORECTAL SCREENING 2014 Colorectal Cancer Screening 2014 FIT-DNA Q 3 years 2014 FIT/FOBT Q 1 year 2014 Flex Sig/CT Colonography Q 5 years 2014 ZOSTER VACCINE (1 of 2) 2019 INFLUENZA VACCINE (#1) 2024 Insurance [facility] Address: [facility] [address] [place] [address]
== END 2025-01-31 07:30 | disposition home or self-care (01) ==
PROVIDERS: PCP Physician Assistant; Visit Provider Physician Assistant
DX: R07.9 Chest pain, unspecified (principal)
CPT/HCPCS: 78452; 93017; A9502

== ENCOUNTER 2025-09-21 07:37 | Day surgery (SDC) | payer OTHER, SELFPAY ==
[2025-07-15 14:30] VITALS: BMI 22.7
[2025-09-03 10:20] VITALS: BMI 23.6
--- OUTSIDE RECORDS SUMMARY | 2025-09-21 08:24 | XMS_ITS | Clinical Summary ---
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 Gender Identity Not on file Sexual Orientation [...] 10:50 AM CDT Height 170.2 cm (5' 7) 07/20/2010 10:50 AM CDT Body Mass Index 22.71 07/20/2010 10:50 AM CDT Plan of Treatment Health Maintenance Due Date Last Done Comments DTAP/TDAP/TD VACCINES (1 - Tdap) 01/21/1988 HEPATITIS B VACCINES (1 of 3 - 19+ 3-dose series) 12/1987 HPV/Cotest (21-29) 1990 CERVICAL CANCER SCREENING 1999 HPV/Cotest (30-65) 1999 PAP SMEAR 1999 BREAST CANCER SCREENING 2009 COLORECTAL SCREENING 2014 Colorectal Cancer Screening 2014 FIT-DNA Q 3 years 2014 FIT/FOBT Q 1 year 2014 Flex Sig/CT Colonography Q 5 years 2014 ZOSTER VACCINE (1 of 2) 2019 INFLUENZA VACCINE (#1) [address] [facility] OPTIONS PPO [id number]
--- OUTSIDE RECORDS SUMMARY | 2025-09-21 08:24 | XMS_ITS | Clinical Summary ---
Author Organization [facility] [address] [facility] [address] Address [address] [place] [address] Care Team Providers Care Metallographer Name Role Phone Lilly Millan Primary Care Pr ovider Allergies Active Allergy Reactions Criticality Noted Date Comments Penicillins Other (See comments) 02/04/2025 Medications FLUoxetine 10 mg tablet/capsule Take 1 tablet/caps ule (10 mg total) by mouth daily Active Active Problems Problem Noted Date Diagnosed Date Chest pain 01/19/2025 Feeling irritable 01/19/2025 Hyperlipidemia 01/19/2025 Smoker 01/19/2025 Surgical History Surgery Date Site/Laterality Comments BRAIN SURGERY TUBAL LIGATION Family History Medical History Relation Name Comments Bladder Cancer Father No Known Problems Mother Relation Name Status Comments Father Mother Alive Social History Tobacco Use Types Packs/Day Years Used Date Smoking Tobacco: Every Day Cigarettes Smokeless Tobacco: Never Tobacco Cessation:Ready to Q uit: Not Asked; Counseling Given: Not Answered Comments Unknown Sex and Gender Information Value Date Recorded Sex Assigned at Not on file 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 Gender Identity Not on file Sexual Orientation Not on file Obstetrics History Last Filed Vital Signs Vital Sign Reading Time Taken Comments Blood Pressure 122/74 02/05/2025 2:19 PM CDT Pulse 89 02/05/2025 2:19 PM CDT Temperature - - Respiratory Rate 16 02/05/2025 2:19 PM CDT Oxygen Saturation 97% 02/05/2025 2:19 PM CDT Inhaled Oxygen Concentration - - Weight 69.4 kg (153 lb) 03/15/2025 2:27 PM CDT Height 170.2 cm (5' 7) 03/15/2025 2:27 PM CDT Body Mass Index 23.96 03/15/2025 2:27 PM CDT Plan of Treatment Health Maintenance Due Date Last Done Comments Breast Cancer Screening-Mammogram 1969 Cervical Cancer Screening 1969 Colon Cancer Screening-Colonoscopy 1969 Depression Screening 1969 Hepatitis C Screening 1969 Hepatitis B Screening 1987 Regular Well Visit/Exam 18-64 1987 Pneumococcal vaccine <65 (1 of 2 - PCV) 01/21/1988 Zoster Vaccine (1 of 2) 2019 Covid-19 Vaccine (3 - season) 2025, 02/15/2021 Influenza Vaccine (#1) 2025 12/21/2019 DTaP/Tdap/Td Vaccine (2 - Td or Tdap) 09/08/2032 Insurance [facility] Address: [facility] [address] [place] [address] Care Teams Metallographer Relationship Specialty Start Date End Date Lilly Millan PA PCP - General Physician Teacher Of The Hearing Impaired 08/01/23
--- OUTSIDE RECORDS SUMMARY | 2025-09-21 08:24 | XMS_ITS | Data Portability ---
Author Organization [facility] [place] Address [address] [place] [address] [place] [address] Assessment Encounter Date Assessment Date Assessment LastModified by Organization Details LastModified Time 05/20/2022 05/20/2022 Annual gynecological exam performed. Patient will come back in a year unless there are new symptoms. Not available 05/20/2022 10:56:50 07/22/2023 07/22/2023 Annual gynecological exam performed. Patient will come back in a year unless there are new symptoms. [email or web address] Not available 07/22/2023 12:53:52 Plan of Treatment Reminders Order Date Submit Date Provider Last Modified By Organization Details Last Modified Time Details Appointments None recorded. Lab urinalysis , dipstick 2022 023 [email or web address] [place], [address], [place], [address], 3 12:58:49 Referral None recorded. Procedures None recorded. Surgeries None recorded. Imaging MAMMO, screening, digital, bilateral 2022 023 [email or web address] [facility], [address] [place] [address] , [place], [address], 4 10:50:20 Medication Orders Macrobid 100 mg capsule 2022 023 [id number], [address] [facility], [place], [place], [id number], 3 13:01:38 Patient TargetsNo targets recorded. Patient InstructionsNo instructions recorded. Reason for Referral None Reported. Results Created Date Observation Date Name Description Value Unit Range Abnormal Flag Note LastModifiedBy Organization Detail LastModifiedTime 05/20/20 22 05/20/2022 IMAGE GUIDE D PAP AND HPV REGAR DLESS image guided Pap, HPV regardless of Pap result SEE RESULT S BELOW CASE REPOR T: Cytol ogy Gynec ologi sanjiv Repor t Case: [id number] Autho abdoulaye brooks Provi tonny: Lawrence preston , Violeta Ventura cted: 05/20 1618 COMMISSARY AGENT Order ing Locat ion: [place] [facility] Recei bella: 05/21 0153 First Scree n: Jagruti Acosta, CT Rescr een: Serene Jasso Speci men: Scree carol ann Pap - Image d, Cervi x STATE MENT OF ADEQU ACY: Satis facto ry for evalu ation Trans forma tion zone compo nent prese nt FINAL DIAGN OSIS: Negat zoya for Intra epith elial Lesio n or Wilmar sharma (NIL) . Shift in kennedy sugge stive of bacte rial vagin osis. Elect opal porter d by Serene Jasso on 022 at 7:25 PM ----- ----- ----- ----- ----- ----- ----- ----- ----- ----- ----- ----- ----- ----- ----- ----- ----- ---- HPV RESUL TS: HPV mRNA E6/E7 : No HPV mRNA Detec karen NOTE: This high risk HPV mRNA assay detec ts fourt een high- risk HPV types (16, 18, 31, 33, 35, 39, 45, 51, 52, 56, 58, 59, 66, 68) witho ut diffe renti ation . COMME NT: Note: This speci men was revie wed by a Cytot echno logis t and/o r Patho logis t (as indic ated in this repor t) after evalu ation using the Thinp rep Imagi ng Syste m. CLINI SANJIV INFOR MATIO N: Menst rual Statu s: LMP (if appli cable ): Clini sanjiv Histo ry/Pr eviou s Pap: Type of Neopl thompson (if appli cable ): Signi fican t Clini sanjiv Findi ngs: Other Histo ry: Hormo aubrey (if appli cable ): PAP EDUCA AMPARO L NOTE: The Pap Test is a scree carol ann test with an inher ent false negat zoya rate. Liqui d-bas ed sampl ing may decre ase, but will not elimi meaghan, false negat zoya resul ts. A negat zoya resul t does not precl ude the prese nce and/o r devel opmen t of disea se, since the prese nce of abnor mal cells in the sampl e depen ds on the locat ion of the lesio n and sampl ing techn ique. Carisa nued regul ar scree carol ann is the best metho d of cance r preve ntion . If repor karen cytol ogic findi ng do not corre late with physi sanjiv and/o r histo rical findi ngs, furth er inves tigat ion is recom lucie d, as clini sung bonilla nted. Not Available [facility] (Lab) [address], [place], [address], 05/27/2022 20:27:48 07/22/2007/22/2023 URINA LYSIS , WITH MICRO SCOPI C, REFLE X CULTU RE color, urine Yellow Not Available [facility] (Lab) [address] [place], [address], 07/27/2023 11:59:43 07/22/20 23 07/22/2023 URINA LYSIS , WITH MICRO SCOPI C, REFLE X CULTU RE clarity, urine Clear Not Available [facility] (Lab) [address] [place], [address], 07/27/2023 11:59:43 07/22/20 23 07/22/2023 URINA LYSIS , WITH MICRO SCOPI C, REFLE X CULTU RE specific gravity, urine 1.025 . 1.005- 1.035 Not Available [facility] (Lab) [address], [place], [address], 07/27/2023 11:59:43 07/22/20 23 07/22/2023 URINA LYSIS , WITH MICRO SCOPI C, REFLE X CULTU RE pH, urine 7.0 . 5.0-7. 0 Not Available [facility] (Lab) [address], [place], [address], 07/27/2023 11:59:43 07/22/20 23 07/22/2023 URINA LYSIS , WITH MICRO SCOPI C, REFLE X CULTU RE protein, UA 20 mg/dL negati ve, 10-20 Not Available [facility] (Lab) [address], [place], [address], 07/27/2023 11:59:43 07/22/20 23 07/22/2023 URINA LYSIS , WITH MICRO SCOPI C, REFLE X CULTU RE glucose, urine Normal mg/dL negati ve Not Available [facility] (Lab) [address], [place], [address], 07/27/2023 11:59:43 07/22/20 23 07/22/2023 URINA LYSIS , WITH MICRO SCOPI C, REFLE X CULTU RE ketones, urine Negati ve mg/dL negati ve Not Available [facility] (Lab) [address], [place], [address], 07/27/2023 11:59:43 07/22/20 23 07/22/2023 URINA LYSIS , WITH MICRO SCOPI C, REFLE X CULTU RE bilirubin, urine Negati ve negati ve Not Available [facility] (Lab) [address] [place], [address], 07/27/2023 11:59:43 07/22/20 23 07/22/2023 URINA LYSIS , WITH MICRO SCOPI C, REFLE X CULTU RE blood, urine Negati ve negati ve Not Available [facility] (Lab) [address], [place], [address], 07/27/2023 11:59:43 07/22/20 23 07/22/2023 URINA LYSIS , WITH MICRO SCOPI C, REFLE X CULTU RE nitrite, urine Negati ve negati ve Not Available [facility] (Lab) [address], [place], [address], 07/27/2023 11:59:43 07/22/20 23 07/22/2023 URINA LYSIS , WITH MICRO SCOPI C, REFLE X CULTU RE leukocyte esterase, urine Negati ve john/u L negati ve Not Available [facility] (Lab) [address], [place], [address], 07/27/2023 11:59:43 07/22/20 23 07/22/2023 URINA LYSIS , WITH MICRO SCOPI C, REFLE X CULTU RE urobilinogen , urine Normal mg/dL normal , <2.0 Not Available [facility] (Lab) [address] [place], [address], 07/27/2023 11:59:43 07/22/20 23 07/22/2023 URINA LYSIS , WITH MICRO SCOPI C, REFLE X CULTU RE RBC, urine 0-2 /hpf none, 0-2 Not Available [facility] (Lab) [address] [place], [address], 07/27/2023 11:59:43 07/22/20 23 07/22/2023 URINA LYSIS , WITH MICRO SCOPI C, REFLE X CULTU RE WBC, urine 0-5 /hpf none, 0-5 Not Available [facility] (Lab) [address] [place], [address], 07/27/2023 11:59:43 07/22/20 23 07/22/2023 URINA LYSIS , WITH MICRO SCOPI C, REFLE X CULTU RE squamous epithelial cells, urine Few /hpf none abnormal Not Available [facility] (Lab) [address], [place], [address], 07/27/2023 11:59:43 07/22/20 23 07/22/2023 URINA LYSIS , WITH MICRO SCOPI C, REFLE X CULTU RE bacteria, urine None /hpf none Not Available [facility] (Lab) [address], [place], [address], 07/27/2023 11:59:43 07/22/20 23 07/22/2023 URINA LYSIS , WITH MICRO SCOPI C, REFLE X CULTU RE hyaline cast, urine None /lpf none, 0-2 Not Available [facility] (Lab) [address], [place], [address], 07/27/2023 11:59:43 07/22/20 23 07/22/2023 URINA LYSIS , WITH MICRO SCOPI C, REFLE X CULTU RE mucus, urine Many /hpf none, trace, few abnormal Urine Cultu re not perfo rmed per refle x nino col. Not Available [facility] (Lab) [address], [place], [address], 07/27/2023 11:59:43 07/22/20 23 07/22/2023 IMAGE GUIDE D PAP AND HPV REGAR DLESS image guided Pap, HPV regardless of Pap result SEE RESULT S BELOW CASE REPOR T: Cytol ogy Gynec ologi sanjiv Repor t Case: [id number] Autho abdoulaye brooks Provi tonny: Zhang Varela Colle cted: 07/22 1411 COMMISSARY AGENT Order ing Locat [place]: [place] [facility] [place] Recei bella: 07/23 0037 First Scree n: McBri de, Krissy ret, CT Speci men: Scree carol ann Pap - Image d, Cervi x STATE MENT OF ADEQU ACY: Satis facto ry for evalu ation Trans forma tion zone compo nent prese nt FINAL DIAGN OSIS: Negat zoya for Intra epith elial Lesio n or Wilmar sharma (NIL) . Elect opal proter d by Krissy Muse ret, CT on 023 at 10:55 AM ----- ----- ----- ----- ----- ----- ----- ----- ----- ----- ----- ----- ----- ----- ----- ----- ----- ---- HPV RESUL TS: HPV mRNA E6/E7 : No HPV mRNA Detec karen NOTE: This high risk HPV mRNA assay detec ts fourt een high- risk HPV types (16, 18, 31, 33, 35, 39, 45, 51, 52, 56, 58, 59, 66, 68) witho ut diffe renti ation . COMME NT: This speci men was revie wed by a Cytot echno logis t and/o r Patho logis t (as indic ated in this repor t) after evalu ation using the Thinp rep Imagi ng Syste m. CLINI SANJIV INFOR MATIO N: Menst rual Statu s: LMP (if appli cable ): Clini sanjiv Histo ry/Pr eviou s Pap: Type of Neopl thompson (if appli cable ): Signi fican t Clini sanjiv Findi ngs: Other Histo ry: Hormo aubrey (if appli cable ): PAP EDUCA AMPARO L NOTE: The Pap Test is a scree carol ann test with an inher ent false negat zoya rate. Liqui d-bas ed sampl ing may decre ase, but will not elimi meaghan, false negat zoya resul ts. A negat zoya resul t does not precl ude the prese nce and/o r devel opmen t of disea se, since the prese nce of abnor mal cells in the sampl e depen ds on the locat ion of the lesio n and sampl ing techn ique. Carisa nued regul ar scree carol ann is the best metho d of cance r preve ntion . If repor karen cytol ogic findi ng do not corre late with physi sanjiv and/o r histo rical findi ngs, furbill er inves tigat ion is recom lucie d, as clini sung soniaangelo nted. Not Available [facility] (Lab) [address], [place], [address], 07/27/2023 11:59:44 07/22/20 23 07/22/2023 urina lysis , dipst ick Leukocytes trace Not Available [facility] emile [address], [place], [address], 07/22/2023 12:58:03 07/22/20 23 07/22/2023 urina lysis , dipst ick Protein trace Not Available [place] [address], [place], [address], 07/22/2023 12:58:03 07/22/20 23 07/22/2023 urina lysis , dipst ick pH 7 Not Available [place] [address], [place], [address], 07/22/2023 12:58:03 07/22/20 23 07/22/2023 urina lysis , dipst ick Blood trace Not Available [place] [address], [place], [address], 07/22/2023 12:58:03 07/22/20 23 07/22/2023 urina lysis , dipst ick Specific [place] 1.005 Not Available [facility] [address], [place], [address], 07/22/2023 12:58:03 Result Notes None recorded. Problems Name Problem SNOMED Code Status Onset Date Resolution Date Notes Provider Name and Address Organization Details Recorded Time Menopaus al symptom 88713273 Completed 201205/19/2022 Menopaus al or female climacte jayda states;R ecorded Elsewher e: No [facility]: [facility] [employer] Advisor luiza: N Practi ce ID: [id number] Darci lable Time: 01:00:00 PM Manisha Andrew [facility] 2 18:53:38 Screenin g for malignan t neoplasm of cervix Completed 201205/19/2022 Screenin g for malignan t neoplasm s of the cervix;R ecorded Elsewher e: No [facility]: [facility] [employer] Advisor luiza: N Practi ce ID: [id number] Darci lable Time: 01:00:00 PM Manisha Andrew [facility] 2 18:53:38 Screenin g for malignan t neoplasm of rectum Completed 201305/19/2022 Screenin g for malignan t neoplasm s of the rectum;R ecorded Elsewher e: No Locat ion: [facility] S ource: EHR [employer] Advisor luiza: N Practi ce ID: [id number] Darci lable Time: 09:00:00 AM Manisha Andrew [facility] 2 18:53:38 Speciali zed medical examinat ion Completed 201305/19/2022 Gynecolo gical Examinat ion;Olvin rded Elsewher e: No Locat ion: [facility] S ource: EHR [employer] Advisor luiza: N Practi ce ID: [id number] Darci lable Time: 09:00:00 AM Manisha Andrew [facility] 2 18:53:[address] Concept Completed 201605/19/2022 Encntr for general adult medical exam w/o abnormal findings ;Recorde d Elsewher e: No Locat ion: [facility] S ource: EHR [employer] Advisor luiza: N Practi ce ID: [id number] Darci lable Time: 08:15:00 AM Manisha Andrew [facility] 2 18:53:[address] Concept Completed 201605/19/2022 Well woman check w/o abnormal finding; Recorded Elsewher e: No Locat ion: [facility] S ource: EHR [employer] Advisor luiza: N Francisco Javierti ce ID: [id number] Darci lable Time: 08:15:00 AM Manisha Andrew [facility] 2 18:53:38 Atypical squamous cells on cervical Papanico laou smear cannot exclude high grade squamous intraepi thelial lesion [id number] Completed 201605/19/2022 Atyp squam cell not excl hi grd intrepit h lesn cyto smr crvx;Rec orded Elsewher e: No Locat ion: [facility] S ource: EHR [employer] Advisor luiza: N Nargis ce ID: [id number] Darci lable Time: 11:30:00 AM Manisha Andrew [facility] 2 18:53:38 Low grade squamous intraepi thelial lesion on anal Papanico laou smear 60112132319 9106 Completed 201705/19/2022 LGSIL on cytologi c smear of anus;Rec orded Elsewher e: No Locat ion: [facility] S ource: EHR [employer] Advisor luiza: N Nargis ce ID: [id number] Darci lable Time: 02:00:00 PM Manisha wong [facility] 2 18:53:38 Atypical squamous cells of undeterm ined signific ance on cervical Papanico laou smear 865518604 Completed 201705/19/2022 Atyp squam cell of undet signfc cyto smr crvx (ASC-US) ;Recorde d Elsewher e: No Locat ion: [facility] S ource: EHR [employer] Advisor luiza: N Francisco Javierti ce ID: [id number] Darci lable Time: 09:30:00 AM Manisha Andrew [facility] 2 18:53:38 Evaluati on finding Completed 201705/19/2022 Unsp abnormal cytolog findings in specmn from cervix uteri;Re corded Elsewher e: No Locat ion: [facility] S ource: EHR [employer] Advisor luiza: N Francisco Javierti ce ID: [id number] Darci lable Time: 09:30:00 AM Manisha [facility] 2 18:53:38 Pregnanc y test negative [id number] Completed 201705/19/2022 Encounte r for pregnanc y test, result negative ;Recorde d Elsewher e: No Locat ion: [facility] shauna [facility] S ource: EHR [employer] Advisor luiza: N Practi ce ID: [id number] Darci lable Time: 09:30:00 AM Manisha [facility] 2 18:53:38 Problem Notes None recorded. Procedures Surgical History Date Name Laterality Status Provider Name and Address Organization Details Recorded Time 2 Date of Last Pap Smear completed [facility] 07/22/2023 12:54:33 2 Date of Last Mammogram completed [facility] 05/20/2022 10:58:23 2 Date of Last Colonoscopy completed [facility] 07/22/2023 12:55:12 8 Colposcopy completed [facility] 05/20/2022 11:01:19 Imaging Results None recorded. Procedure Notes None recorded. Medical Equipment None Reported. Allergies Allergen ID Allergen Name Allergen Category Reaction Reaction Severity Criticality Documentation Date Start Date Code Code System Note Provider Name and Address Organization Details Recorded Time 05426 Product containin g penicilli n (product) medicatio n Not available Not available Not available 11/07/2020 20046 8001 SNOMED Comme nt: [facility]; [facility] 14:17:56 Medications Name Sig Start Date Stop Date Status Note LastModified by Organization Details LastModified Time sulfameth oxazole 800 mg-trimet hoprim 160 mg tablet TAKE 1 TABLET BY MOUTH EVERY 12 HOURS WITH MEALS active Not Available Not Available No t Available fluoxetin e 10 mg capsule TAKE 1 CAPSULE BY MOUTH EVERY DAY active Not Available Not Available No t Available codeine 10 mg-guaife nesin 100 mg/5 mL oral liquid TAKE 10 ML BY MOUTH EVERY 4 TO 6 HOURS NEEDED 05/20 completed Not Available Not Available Not Available cefuroxim e axetil 500 mg tablet TAKE 1 TABLET BY MOUTH EVERY 12 HOURS 05/20 completed Not Available Not Available Not Available methylpre dnisolone 4 mg tablets in a dose pack FOLLOW PACKAGE DIRECTIO NS 05/20 completed Not Available Not Available Not Available rosuvasta tin 5 mg tablet TAKE 1 TABLET BY MOUTH EVERY DAY AT BEDTIME active Not Available Not Available No t Available Prempro 0.3 mg-1.5 mg tablet take 1 tablet by oral route every day 04/12 completed Prescrib ed Elsewher e: No Locat ion: [facility] M odify By: celestine [facility] er DateTime : 04/12/20 13 10:42:12 AM Not Available Not Available Not Available nitrofura ntoin monohydra te/macroc rystals 100 mg capsule TAKE 1 CAPSULE BY MOUTH EVERY 12 HOURS WITH MEALS FOR 7 DAYS active Not Available Not Available No t Available Vitals Date Recorded Body height Body mass index (BMI) Body weight Systolic And Diastolic Provider Name and Address Organization Details Last Updated DateTime 05/20/2022 167.64 cm 24.2 kg/m2 58250.86 g 120/70 mm[Hg] Manisha Andrew [facility] 05/20/2022 10:57:55 Date Recorded Body height Body mass index (BMI) Body weight Systolic And Diastolic Provider Name and Address Organization Details Last Updated DateTime 07/22/2023 167.64 cm 25.8 kg/m2 22074.78 g 120/78 mm[Hg] Gladis Fitzpatrick [facility] 07/22/2023 12:54:13 Social History Question Answer Notes LastModified by Organizat ion Details LastModified Time Tobacco Smoking Status Current Some Day Smoker Chari Melvin [facility] 07/22/2023 12:40:25 Do You Have An Advance Directive? No Information n ot available 05/20/2022 Are You Blind Or Do You Have Difficulty Seeing? No Information n ot available 05/20/2022 What Is Your Level Of Caffeine Consumption? Moderate Information not available 05/20/2022 In The 14 Days Before Symptom Onset, Have You Had Close Contact With A Laboratory-confirm ed COVID-19 While That Case Was Ill? No Information n ot available 05/20/2022 In The 14 Days Before Symptom Onset, Have You Had Close Contact With A Person Who Is Under Investigation For COVID-19 While That Person Was Ill? No Information not available 05/20/2022 Have You Been To An Area Known To Be High Risk For COVID-19? No Information not available 05/20/2022 Are You Deaf Or Do You Have Serious Difficulty Hearing? No Information not available 05/20/2022 What Type Of Diet Are You Following? REGULAR Information n ot available 05/20/2022 What Is The Highest Grade Or Level Of School You Have Completed Or The Highest Degree You Have Received? [id number] Information not available 05/20/2022 Are There Any Guns Present In Your Home? Yes Information not available 05/20/2022 Do You Use Protection During Sex? No Information not available 05/20/2022 Do You Use Your Seat Belt Or Car Seat Routinely? Yes Information not available 05/20/2022 Do You Have Smoke And Carbon Monoxide Detectors In Your Home? Yes Information not available 05/20/2022 Do You Use Sunscreen Routinely? Yes Information not available 05/20/2022 Have You Used IV Drugs? No Information not available 05/20/2022 Do You Have Difficulty Walking Or Climbing Stairs? No Information not available 07/22/2023 Sex: Unknown Functional Status Question Answer Note LastModified by Organizat ion Details LastModified Time Do you use any illicit or recreational drugs? No Information not available 05/20/2022 What is your level of alcohol consumption? Moderate Information not available 05/20/2022 Are you able to walk independently without assistance or assistive devices? YESWOREST Information not available 05/20/2022 Are you able to care for yourself independently? 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 No Information not available 07/22/2023 What is your exercise level? Occasional Information not available 05/20/2022 Mental Status Question Answer Note LastModified by Organization D etails LastModified Time Do you feel stressed (tense, restless, nervous, or anxious, or unable to sleep at night)? [id number] Information not available 05/20/2022 Family History Relationship Description Onset Age of this Age Resolved Age Notes LastModified by Organization Details LastModified Time Maternal Grandmother Malignant neoplasm of breast Not available 2021 23:17:43 Maternal Grandmother Malignant neoplasm of lung Not available 2021 23:18:04 Mother Asthma Not available 23:18:14 Medical History Condition Response History of abnormal pap Y Depression/ depression Y Gynecological History Statement/Question Response Abnormal Pap Y Date of Last Mammogram 05/14/2022 Date of LMP 11/21/2013 On BCP's at Conception? N N STIs/STDs Yes HPV Vaccine N Colposcopy 06/30/2018 Current Control Method Menopause Age at First Child 17 If Post Menopausal, Age at Menopause 44 Date of Last Colonoscopy 04/21/2022 Sexually Active? Y Menses Monthly N Date of DEXA bone scan 11/21/2019 Age of first menstrual cycle 12 Date of Last Pap Smear 05/20/2022 Sexual Problems? No Desired Control Method Sterilizati on N Obstetrics History GPAL:G 3 P 0 0 0 3 Type Value Living 3 Total 3 Past Encounters Encounter ID Performer Location Encounter Start Date Encounter Closed Date Diagnosis/Indication Diagnosis SNOMED-CT Code Diagnosis ICD10 Code Diagnosis IMO Codes Diagnosis Note [id number] Sarah Bravoerich , [facility] [address],[facility] [place] [address] 05/20/2022 10:44:58 05/20/2022 14:56:55 Gynecologic examination 85265859 Z01.419 Take Calcium with Vitamin D 12-1500mg daily. Do monthly self breast exams. It is advised to get annual flu shot in the fall and she could obtain at [facility] or [facility] clinic. If you haven't received the Tdap vaccine in the last 10 years you should obtain one as well. Have mammogram yearly, bone density every 2-3 years and colonoscop y every 5-10 years depending on findings and history. Engage in daily exercise of low impact aerobic exercise 45-60 minutes 4-5 times weekly. Avoid tobacco and illicit drugs as well as using moderation with alcohol intake less than 1-2 8 oz beverages daily. This lifestyle behavior pattern will lead to less health conditions and longer life span. If BMI greater than 25 weight watchers or dietary consult advised. Questions have been answered. Patient appears to understand instructio ns, but if you have any further questions call or respond to this email Pap/hpv sentSTD Screen declinedGe netic Screen discussed, would like to completeCo karyna Screen [facility] PCP [id number] Sarah Mendez , [facility] [address] [address] 07/22/2023 12:40:07 07/22/2023 14:19:48 Urinary symptoms [id number] R39.9 Suspect UTI on DipRx sentUrine cx sent Counseled on medication R/B's, Most common side effects, & use. All questions were answered to patient satisfacti on. Gynecologi c examination [id number] Z01.419 Z11.51 Take Calcium with Vitamin D 12-1500mg daily. Do monthly self breast exams. It is advised to get annual flu shot in the fall and she could obtain at [facility] or [facility] clinic. If you haven't received the Tdap vaccine in the last 10 years you should obtain one as well. Have mammogram yearly, bone density every 2-3 years and colonoscop y every 5-10 years depending on findings and history. Engage in daily exercise of low impact aerobic exercise 45-60 minutes 4-5 times weekly. Avoid tobacco and illicit drugs as well as using moderation with alcohol intake less than 1-2 8 oz beverages daily. This lifestyle behavior pattern will lead to less health conditions and longer life span. If BMI greater than 25 weight watchers or dietary consult advised. Questions have been answered. Patient appears to understand instructio ns, but if you have any further questions call or respond to this email Pap/hpv sentSTD Screen declinedGe netic Screen discussed, would like to completeCo karyna Screen UTD PCPDexa Screen naRoutine Labs UTD PCPMammo ordered Screening mammography 24 [id number] Z12.31 Health Concerns Section Related Observation LastModified by Organization Detai ls LastModified Time None Recorded Concern Status LastModified by Organization Details LastModified Time None Recorded Advance Directives Directive N: Payers Insurance Date Sequence Insurance Name Policy Number Policy Darby Covered Member ID Darby Member ID Guarantor Name 07/15/2023 1 [facility] [id number] Tamara Phillips [id number] Nydia Phillips 07/22/2023 1 [facility] Tamara Phillips [id number] Nydia Phillips Notes Date Note Type Note Provider Name and Address Organization Details Recorded Time 2 text/html 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 For vaginal bleeding, patient reportshistory of menopause having occurredandno history of post menopausal bleeding. For urinary symptoms, patient reportsno hematuria,no incontinence,no nocturia, andno urinary frequency. For vulva, patient reportsno genital lesionandno vulvar atrophy. For vagina, patient reportsnormal vaginal dischargeandno vaginal atrophy.Breast symptomsFor breast, patient reportsno breast lump,no nipple discharge, andno breast pain.Psychological symptomsFor sexual complaints, patient reportsno sexual complaints. For psychological symptoms, patient reportsno depressionandno anxiety.Preventative measuresFor preventive measures, patient reportsencourage regular mammograms starting age 40,encourage self breast examination,encourage regular exercise,encourage no tobacco use,mammogram performed within the past year, andhistory of recent colonoscopy. Sarah Mendez, IRAM-BC [address], [place], [address], [facility] 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 For vaginal bleeding, patient reportshistory of menopause having occurredandno history of post menopausal bleeding. For urinary symptoms, patient reportsno hematuria,no incontinence,no nocturia, andno urinary frequency. For vulva, patient reportsno genital lesionandno vulvar atrophy. For vagina, patient reportsnormal vaginal dischargeandno vaginal atrophy.Breast symptomsFor breast, patient reportsno breast lump,no nipple discharge, andno breast pain.Psychological symptomsFor sexual complaints, patient reportsno sexual complaints. For psychological symptoms, patient reportsno depressionandno anxiety.Preventative measuresFor preventive measures, patient reportsencourage regular mammograms starting age 40,encourage self breast examination,encourage regular exercise,encourage no tobacco use,needs to schedule mammogram, andhistory of recent colonoscopy. Sarah Mendez, SUDHEER- [address], [place], [address], [facility] 07/22/2023 13:18:45 OBGyn Episode Ob Episode Information Episode Created Date Number of Fetuses Patient Bloodtype Patient rh Status Prepregnancy Weight lbs Domestic Partner Domestic Partner Phone Father Name Supervisor Wool Shearing Status 05/20/20 22 1 CLOSED Fetus Data First Name Last Name Admitted to NICU Weight (g) Sex Living Outcome Pediatric Complications Fetus ID Race Codes Race Delivery Type M [id number] Vaginal Delivery Korey Calculation Initial Korey Date Initial Exam Date Initial Exam Provider Initial Ultrasound Date Last Menstrual Period Date Ultra Sound Weeks Gestation 0 Eighteen To Twenty Week Korey Update Ultra Sound Date Fundal Height At Umbil Quickening Date Ultra Sound Latest Weeks Gestation Final Korey Confirmed By Final Korey Confirmed Date Final Korey Date Ultra Sound Latest Days Gestation 0 0 Menstrual History Last Menstrual Date Menses Monthly On Bcp Conception Prior Menses Frequency Hcg Plus Date Menarche Onset Age Delivery Information Delivery Date Delivery Type Labor Anesthesia Weeks Gestation Incision Type Labor Labor Length Hrs Delivered By Post Complications Tubal Sterilization Discharge Date Comments 9 Discharge Information Feeding Method Contraceptive Method Maternal HG B and HCT Levels Ob Episode Information Episode Created Date Number of Fetuses Patient Bloodtype Patient rh Status Prepregnancy Weight lbs Domestic Partner Domestic Partner Phone Father Name Supervisor Wool Shearing Status 05/20/20 22 1 CLOSED Fetus Data First Name Last Name Admitted to NICU Weight (g) Sex Living Outcome Pediatric Complications Fetus ID Race Codes Race Delivery Type M [id number] Vaginal Delivery Korey Calculation Initial Korey Date Initial Exam Date Initial Exam Provider Initial Ultrasound Date Last Menstrual Period Date Ultra Sound Weeks Gestation 0 Eighteen To Twenty Week Korey Update Ultra Sound Date Fundal Height At Umbil Quickening Date Ultra Sound Latest Weeks Gestation Final Korey Confirmed By Final Korey Confirmed Date Final Korey Date Ultra Sound Latest Days Gestation 0 0 Menstrual History Last Menstrual Date Menses Monthly On Bcp Conception Prior Menses Frequency Hcg Plus Date Menarche Onset Age Delivery Information Delivery Date Delivery Type Labor Anesthesia Weeks Gestation Incision Type Labor Labor Length Hrs Delivered By Post Complications Tubal Sterilization Discharge Date Comments 8 Discharge Information Feeding Method Contraceptive Method Maternal HG B and HCT Levels Ob Episode Information Episode Created Date Number of Fetuses Patient Bloodtype Patient rh Status Prepregnancy Weight lbs Domestic Partner Domestic Partner Phone Father Name Supervisor Wool Shearing Status 05/20/20 22 1 CLOSED Fetus Data First Name Last Name Admitted to NICU Weight (g) Sex Living Outcome Pediatric Complications Fetus ID Race Codes Race Delivery Type F [id number] Vaginal Delivery Korey Calculation Initial Korey Date Initial Exam Date Initial Exam Provider Initial Ultrasound Date Last Menstrual Period Date Ultra Sound Weeks Gestation 0 Eighteen To Twenty Week Korey Update Ultra Sound Date Fundal Height At Umbil Quickening Date Ultra Sound Latest Weeks Gestation Final Korey Confirmed By Final Korey Confirmed Date Final Korey Date Ultra Sound Latest Days Gestation 0 0 Menstrual History Last Menstrual Date Menses Monthly On Bcp Conception Prior Menses Frequency Hcg Plus Date Menarche Onset Age Delivery Information Delivery Date Delivery Type Labor Anesthesia Weeks Gestation Incision Type Labor Labor Length Hrs Delivered By Post Complications Tubal Sterilization Discharge Date Comments 7 Discharge Information Feeding Method Contraceptive Method Maternal HG B and HCT Levels
[2025-09-21 08:55] VITALS: BP 114/75; PULSE 70; RESP 18; TEMP 36.7; O2SAT 97; BMI 25.1
--- NOTE | 2025-09-21 08:58 | WPDANESEPPF ---
Anes - Initial Pre Proc Eval Procedure: Operation Date: 09/21/25 10:00 Proposed Procedures p Screening Colonoscopy - Keith Reeves MD Date/Time: 09/21/25 08:58 Surgeon: Keith Reeves MD Pre Op Diagnosis: Personal history of colon polyps, unspecified Patient Data Age: 55 Gender: F Height: 1.7 m Weight: 72.7 kg Allergies Allergy/AdvReac Type Severity Reaction Status Date / Time bupropion Allergy Mild HIVES Verified 09/21/25 08:42 Penicillins Allergy Unknown HIVES Verified 09/21/25 08:42 Home Medications ?Medication ?Instructions ?Recorded ?Confirmed ?Type fluoxetine 10 mg capsule 10 mg PO DAILY 06/30/22 09/21/25 History Patient hx anesthesia problems: none Family hx anesthesia problems: none Results Review: All pre-operative results and documents have been reviewed as part of the pre-operative evaluation. ON LICENSE OF [facility] Social History Social History Smoking packs per day: 0.5 Smoking cigarettes per day: 10.0 Years smoked: 30 Smoking pack-years: 15.00 Smoking status: Current every day smoker Tobacco type: cigarettes Second hand tobacco smoke exposure: Yes Alcohol intake: current Drinks per week: 3 Alcohol use details: 1-2 glasses of wine each evening Substance use: never Substance use type: does not use Living arrangements: with family Spiritual care concerns: No Anes - Eval Final PreProcedure Day of Procedure 09/21/25 08:58 Heart: regular rate and rhythm Lungs: clear to auscultation Airway: Mallampati scale class II Neurological: alert and oriented Last oral intake: >/= 8 hours ASA classification: II Anesthetic plan: proceed Anesthesia type and monitoring: monitored anesthesia care Results Review: All pre-operative results and documents have been reviewed as part of the pre-operative evaluation. Informed Consent: The patient's anesthetic plan and its attendant risks and benefits were discussed with the patient/family/POA. Questions were solicited and answers provided to the satisfaction of the patient/family/POA.
[2025-09-21] MEDS: LACTATED RINGERS 1,000 ML 150 ML IV CONT (09:09)
--- NOTE | 2025-09-21 09:28 | WPDANESEPPF ---
Anes - Initial Pre Proc Eval Procedure: Operation Date: 09/21/25 10:00 Proposed Procedures p Screening Colonoscopy - Keith Reeves MD Date/Time: 09/21/25 09:28 Surgeon: Keith Reeves MD Pre Op Diagnosis: Personal history of colon polyps, unspecified Patient Data Age: 55 Gender: F Height: 1.7 m Weight: 72.7 kg Last Vital Signs Temp 98.1 F 09/21/25 08:55 Pulse 70 09/21/25 08:55 Resp 18 09/21/25 08:55 BP 114/75 09/21/25 08:55 Pulse Ox 97 09/21/25 08:55 O2 Del Method Room Air 09/21/25 08:55 Allergies Allergy/AdvReac Type Severity Reaction Status Date / Time bupropion Allergy Mild HIVES Verified 09/21/25 08:42 Penicillins Allergy Unknown HIVES Verified 09/21/25 08:42 Home Medications ?Medication ?Instructions ?Recorded ?Confirmed ?Type fluoxetine 10 mg capsule 10 mg PO DAILY 06/30/22 09/21/25 History Patient hx anesthesia problems: none Family hx anesthesia problems: none Results Review: All pre-operative results and documents have been reviewed as part of the pre-operative evaluation. [facility] Social History Social History Smoking packs per day: 0.5 Smoking cigarettes per day: 10.0 Years smoked: 30 Smoking pack-years: 15.00 Smoking status: Current every day smoker Tobacco type: cigarettes Second hand tobacco smoke exposure: Yes Alcohol intake: current Drinks per week: 3 Alcohol use details: 1-2 glasses of wine each evening Substance use: never Substance use type: does not use Living arrangements: with family Spiritual care concerns: No Anes - Eval Final PreProcedure Day of Procedure 09/21/25 09:28 Heart: regular rate and rhythm Lungs: clear to auscultation Airway: Mallampati scale class II Neurological: alert and oriented Last oral intake: >/= 8 hours ASA classification: II Anesthetic plan: proceed Anesthesia type and monitoring: monitored anesthesia care Results Review: All pre-operative results and documents have been reviewed as part of the pre-operative evaluation. Informed Consent: The patient's anesthetic plan and its attendant risks and benefits were discussed with the patient/family/POA. Questions were solicited and answers provided to the satisfaction of the patient/family/POA.
--- NOTE | 2025-09-21 09:39 | P.HP_ITS ---
H&P: HPI History of Present Illness Date/Time: 09/21/25 09:39 Chief Complaint: History of colon polyps Narrative: The patient has a history of colonic polyps, the last colonoscopy was in 2021. On previous Colonoscopy, she was found to have a large, premalignant polyp. is now referred for surveillance colonoscopy. Review of Systems Review of Systems: All systems reviewed & are unremarkable except as noted in HPI and below [facility] Social History Social History Smoking packs per day: 0.5 Smoking cigarettes per day: 10.0 Years smoked: 30 Smoking pack-years: 15.00 Smoking status: Current every day smoker Tobacco type: cigarettes Second hand tobacco smoke exposure: Yes Alcohol intake: current Drinks per week: 3 Alcohol use details: 1-2 glasses of wine each evening Substance use: never Substance use type: does not use Living arrangements: with family Spiritual care concerns: No Meds Home Medications and Allergies Home Medications ?Medication ?Instructions ?Recorded ?Confirmed ?Type fluoxetine 10 mg capsule 10 mg PO DAILY 06/30/22 1112/15 History Allergies Allergy/AdvReac Type Severity Reaction Status Date / Time bupropion Allergy Mild HIVES Verified 09/21/25 08:42 Penicillins Allergy Unknown HIVES Verified 09/21/25 08:42 Vital Signs Vital Signs - 24 hr 09/21/25 08:55 Temperature 98.1 F Pulse Rate 70 Respiratory Rate 18 Blood Pressure 114/75 Pulse Oximetry 97 Oxygen Delivery Room Air Exam Const: General: cooperative and healthy appearing Resp: Effort & Inspection: normal respiratory effort and able to speak in complete sentences Auscultation: clear to auscultation bilaterally Cardio: Rate: regular rate Rhythm: regular rhythm GI: Inspection: normal to inspection GI Palp: No No hepatosplenomegaly present Auscultation: normal bowel sounds Rectal Exam: deferred Skin: General skin exam: normal color Psych: Appearance: grossly normal Mental Status: mental status grossly normal Assessment and Plan Assessment and plan (1) Personal history of colonic polyps: Code(s): Z86.010 - Personal history of colon polyps Status: Acute Plan The patient is deemed a good candidate for the procedure. Consent signed. Will proceed.
--- NOTE | 2025-09-21 10:08 | SUR.OPER ---
EGD scope used for colonoscopy. Advanced to the hepatic flexure.
--- NOTE | 2025-09-21 10:10 | WPDANESPN ---
Anes - Prog Note Post-Op Date/Time: 09/21/25 10:10 Vital Signs: Last Vital Signs Temp 98.1 F 09/21/25 08:55 Pulse 70 09/21/25 08:55 Resp 18 09/21/25 08:55 BP 114/75 09/21/25 08:55 Pulse Ox 97 09/21/25 08:55 O2 Del Method Room Air 09/21/25 08:55 Pain Score (VAS): no Patient Feedback: Patient satisfied with anesthetic care.
[2025-09-21 10:20] VITALS: BP 115/61; PULSE 68; RESP 16; O2SAT 100
[2025-09-21 10:30] VITALS: BP 112/66; PULSE 60; RESP 15; O2SAT 100
[2025-09-21 10:40] VITALS: BP 122/66; PULSE 60; RESP 18; O2SAT 100
== END 2025-09-21 10:50 | disposition home or self-care (01) ==
PROVIDERS: PCP Physician Assistant; Referring Provider Internal Medicine Gastroenterology; Visit Provider Internal Medicine Gastroenterology
PROC: 0DJD8ZZ Inspection of Lower Intestinal Tract, Via Natural or Artificial Opening Endoscopic (ICD-10-PCS; CPT 45378; principal; 2025-09-21 10:00)
DX: Z12.11 Encounter for screening for malignant neoplasm of colon (principal); K63.5 Polyp of colon; K57.30 Diverticulosis of large intestine without perforation or abscess without bleeding
CPT/HCPCS: 45385

== ENCOUNTER 2025-09-21 11:38 | Outpatient (NON) | payer OTHER, SELFPAY ==
--- NOTE | 2025-09-21 | S_PTH ---
PATIENT: Tamara Phillips LOC: [facility] #:[id number] AGE/SX: 55/F ROOM: RE09/21/[address]: Keith Reeves MD : 1970 BED: DIS: 09/21/2025 SPEC #: [id number] RECD: 09/24/25 11:43 STATUS: RACQUEL REAdebayo #: [id number] LARON: 09/21/25 00:[address]: Keith Reeves DEPT: [facility] Surgical RECD BY: Julianne Waggoner ENTERED: 09/24/25 11:44 SP TYPE: Surgical OTHR DR: Lilly Millan, PAAndrea Tissues: A - Colon Polypectomy Procedures: Hematoxylin and Eosin Stain Gross and Microscopic Level 4
--- OUTSIDE RECORDS SUMMARY | 2025-09-24 13:53 | XMS_ITS | Data Portability ---
Author Organization [place] - [facility], Main Office Address [address] [place] [address] Assessment Encounter Date Assessment Date Assessment LastModified [...] stress echocardiog isa 2022 023 [email or web address] 4 [facility], [address] [place] [address] [address], [place], [address], 4 14:28:34 Medication Orders sulfamethox azole 800 mg-trimetho prim 160 mg tablet 2022 023 [id number], [address] [place], [place], [id number], 3 16:16:51 rosuvastati n 5 mg tablet 2022 023 [id number], [address], [place], [id number], 3 16:16:51 Patient TargetsNo targets recorded. Patient InstructionsNo instructions recorded. Reason for Referral None Reported. Results Created Date Observation Date Name Description Value Unit Range Abnormal Flag Note LastModifiedBy Organization Detail LastModifiedTime 05/14/20 22 05/14/2022 CT, chest , w/o contr ast No observ ation record ed. [id number] [place] [address], [place], [address], 01/19/2023 16:58:31 05/17/20 22 05/14/2022 MAMMO , scree carol ann, digit al, bilat eral No observ ation record ed. [id number] [facility] [address] , [place], [address], 01/19/2023 16:58:31 07/13/20 22 07/09/2022 colon oscop y scree carol ann (PROC ) No observ ation record ed. [email or web address] [facility] [address] [facility], [place], [address], 07/29/2023 15:58:11 Result Notes None recorded. 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 Not Available [facility] 3 16:56:50 Fracture of calcaneus 851924440 Active Not Available [facility] 3 16:56:51 Vitamin D deficiency 75168045 Active Not Available [facility] 3 16:56:51 Fever 918183174 Active Not Available [facility] 3 16:56:51 Viral syndrome 821374283 Active Not Available [facility] 3 16:56:51 Anxiety 05932817 Active 2021 Not Available [facility] 3 16:56:51 Multiple nodules of lung 293196885 Active 2021 Not Available [facility] 3 16:56:51 Feeling irritable 77702912 Active 2021 Not Available [facility] 3 16:56:51 Acute bronchitis 29886763 Active 2021 Not Available [facility] 3 16:56:50 Postviral cough 648937058 Active 2021 Not Available [facility] 3 16:56:51 CT of chest abnormal 3062719244509 9102 Active 2021 Not Available [facility] 3 16:56:50 Blood chemistry outside reference range 177504920 Active 2021 Not Available [facility] 3 16:56:50 Mixed hyperlipid emia 011708690 Active 2022 DIANE Cano [address], [address], [place], [address] , [employer] 3 16:14:37 Atypical chest pain 866824592 Active 2022 DIANE Cano [address], [address], [place], [address] , [facility] 3 16:15:23 Superficia l injury of hand with infection 09226955 Active 2022 DIANE Cano [address], [address], [place], [address] , [facility] 3 16:16:17 Problem Notes None recorded. Procedures Surgical History Date Name Laterality Status Provider Name and Address Organization Details Recorded Time 07/09/20 22 colonoscopy completed Not Available [facility] 01/20/20 16:55:42 08/15/20 19 Date of Last Colonoscopy completed Not Available [facility] 01/19/2023 16:55:41 08/15/20 19 Colonoscopy completed Not Available [facility] 01/20/20 23 16:55:42 02/11/20 15 Most Recent Bone Density completed Not Available [facility] 01/19/2023 16:55:41 01/01/19 80 Brain Surgery completed Not Available [facility] 2022 16:55:42 Imaging Results None recorded. Procedure Notes None recorded. Medical Equipment None Reported. Allergies Allergen ID Allergen Name Allergen Category Reaction Reaction Severity Criticality Documentation Date Start Date Code Code System Note Provider Name and Address Organization Details Recorded Time 91712 Product containin g penicilli n (product) medicatio n hives Not available Not available 01/19/2023 96045 8001 SNOMED Not Available [facility] 16:58:27 Medications Name Sig Start Date Stop [...] 2019 active Not Available Not Available Not Kylie baez Symbicort 80 mcg-4.5 mcg/actuati on HFA aerosol [...] 2015 active Not Available Not Available Not Avai lable Vitals Date Recorded Body mass index (BMI) Body height Oxygen saturation Oxygen saturation in Arterial blood by Pulse oximetry Heart rate Respiratory rate Body temperature Body weight Systolic And Diastolic Provider Name and Address Organization Details Last Updated DateTime 1 24.7 kg/m2 170.82 cm 98 % 98 % 94 /min 16 /min 97.9 [degF] 98963.1 9 g 128/76 mm[Hg] Not Available [facility] 3 16:56:01 Date Recorded Body mass index (BMI) Body height Oxygen saturation Oxygen saturation in Arterial blood by Pulse oximetry Heart rate Respiratory rate Body temperature Body weight Systolic And Diastolic Provider Name and Address Organization Details Last Updated DateTime 2 26.4 kg/m2 170.82 cm 97 % 97 % 83 /min 16 /min 97.5 [degF] 51664.2 7 g 120/80 mm[Hg] Not Available [facility] 3 16:56:01 Date Recorded Systolic And Diastolic Provider Name and Address Organization Details Last Updated DateTime 07/29/2023 110/70 mm[Hg] DIANE Cano [address], [facility] [address], [place], [address], [place] [employer] [facility] 07/29/2023 16:26:30 Date Recorded Body weight Body mass index (BMI) Body height Body temperature Heart rate Oxygen saturation Oxygen saturation in Arterial blood by Pulse oximetry Systolic And Diastolic Provider Name and Address Organization Details Last Updated DateTime 3 48716.9 6 g 25.4 kg/m2 170.18 cm 97.8 [degF] 77 /min 98 % 98 % 124/70 mm[Hg] Chantal Estes RN [facility] 3 15:50:06 Social History Question Answer Notes LastModified by Organizat ion Details LastModified Time Tobacco Smoking Status Former Smoker Not Available [facility] 01/19/2023 16:55:33 What Is Your Level Of Caffeine Consumption? Moderate [id number] Information not available 01/19/2023 How Much Tobacco Do You Chew? None MIGRATION.952440 1714 Information not available 01/19/2023 In The 14 Days Before Symptom Onset, Have You Had Close Contact With A Laboratory-confirm ed COVID-19 While That Case Was Ill? No [id number].[id number] 8050 Information not available 01/19/2023 In The 14 Days Before Symptom Onset, Have You Had Close Contact With A Person Who Is Under Investigation For COVID-19 While That Person Was Ill? No MIGRATION.[id number] 7470 Information not available 01/19/2023 What Type Of Diet Are You Following? REGULAR MIGRATION.279582 9799 Information not available 01/19/2023 Have There Been Any Changes To Your Family Or Social Situation? No MIGRATION.432346 5070 Information not available 01/19/2023 Are There Any Guns Present In Your Home? Yes MIGRATION.205490 1619 Information not available 01/19/2023 Do You Use Insect Repellent Routinely? No [email or web address] Information not available 07/28/2023 What Was The Date Of Your Most Recent Tobacco Screening? 03/06/2021 [id number].[id number] 3166 Information not available 01/19/2023 What Is Your Relationship Status? MIGRATION.731367 2009 Information not available 01/19/2023 Do You Use Your Seat Belt Or Car Seat Routinely? Yes MIGRATION.752162 5565 Information not available 01/19/2023 Do You Have Smoke And Carbon Monoxide Detectors In Your Home? Yes MIGRATION.643445 7063 Information not available 01/19/2023 Are You Passively Exposed To Smoke? No MIGRATION.822911 9208 Information not available 01/19/2023 How Much Tobacco Do You Smoke? No MIGRATION.268167 6171 Information not available 01/19/2023 Do You Use Sunscreen Routinely? Yes [email or web address] Information not available 07/28/2023 Have You Recently Traveled Abroad? No MIGRATION.113954 0356 Information not available 01/19/2023 Do You Have Any Dietary Restrictions? No MIGRATION.941066 8685 Information not available 01/19/2023 Sex: Unknown Functional Status Question Answer Note LastModified by Organizat ion Details LastModified Time Do you use any illicit or recreational drugs? No MIGRATION.939610 5081 Information not available 01/19/2023 Do you or have you ever used any other forms of tobacco or nicotine? No MIGRATION.867250 3176 Information not available 01/19/2023 What is your level of alcohol consumption? Moderate MIGRATION.845325 9282 Information not available 01/19/2023 Do you or have you ever used smokeless tobacco? Never used smokeless tobacco MIGRATION.902027 1917 Information not available 01/19/2023 Are you currently employed? 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 Never used electronic cigarettes MIGRATION.709816 9027 Information not available 01/19/2023 What is your exercise level? Heavy MIGRATION.254388 0053 Information not available 01/19/2023 Mental Status None recorded. Family History Relationship Description Onset Age of this Age Resolved Age Notes LastModified by Organization Details LastModified Time Maternal Grandmother Malignant neoplasm of lung [email or web address] Not available 06/2023 15:45:55 Maternal Grandfather Myocardial infarction [id number] [id number] Not available 01/19/2023 16:55:42 Paternal Grandmother Cerebrovascu lar accident [email or web address] Not available 07/29/2023 15:45:55 Paternal Grandmother Hypertensive disorder MIGRATION.855 [id number] Not available 01/19/2023 16:55:42 Father No current problems or disability [email or web address] Not available 15:45:55 Father General health good [email or web address] Not available 0 07/29/2023 15:45:55 Mother No current problems or disability Not available 15:45:55 Medical History Condition Response [...] mcg/0.3 mL dose 1 completed Not Available [facility] 01/19/2023 16:58:24 Tdap 2 completed Not Available [facility] 01/19/2023 16:58:25 Influenza, split virus, quadrivalent, preservative 0 completed Not Available [facility] 01/19/2023 16:58:25 Past Encounters Encounter ID Performer Location Encounter Start Date Encounter Closed Date Diagnosis/Indication Diagnosis SNOMED-CT Code Diagnosis ICD10 Code Diagnosis IMO Codes Diagnosis Note [id number] DIANE Cano [facility] [place] [address] [place] [address] 03/06/2021 00:00:00 03/20/2021 19:45:23 [id number] Pratik Escobar MD [facility] [place] [address] [place] [address] 04/16/2022 00:00:00 04/16/2022 17:00:16 [id number] DIANE Cano [facility] Internal [facility] [place] [address] [place] [address] 07/29/2023 15:45:41 07/29/2023 16:21:28 Adult health examination 398895330 Z00.01 well exam completed Mixed hyperlipidemia 267 359999 E78.2 LDL 155. Trigs mild elevation. start rosuvastat in 5mg qhs. repeat labs fasting in nov. Anxiety 21547706 F41.9 stable on fluoxetine 10mg daily Atypical chest pain 1025 95590 R07.89 mid-sterna l chest pain randomly, last only seconds. Risk factors include: dyslipidem ia, tobacco use and fam hx of CAD. refer for exercise stress echo Superficia l injury of hand with infection 87010744 L08.9 right palm with blistering type papular lesion vertical 1cm size mid-palm. CT of chest abnormal 023 2774057 9150762 R93.89 pt was referred to pulmonary for [...] Recorded Advance Directives Directive None Recorded Payers Insurance Date Sequence Insurance Name Policy Number Policy Darby Covered Member ID Darby Member ID Guarantor Name 08/19/2023 1 [facility] [id number] Tamara Phillips [id number] Tamara Phillips 07/28/2023 1 [facility] [id number] Tamara Phillips [id number] Tamara Phillips Notes Date Note Type Note Provider Name and Address Organization Details Recorded Time 07/29/2023 text/html Anxiety/Depressi onRe ported by PatientHPIFor severity, patient reportsdenies suicidal ideations,able to maintain relationships, anddoes not interfere with activities of daily living. For context, patient reportsno major life stressors. For associated symptoms, patient reportsdenies homicidal ideations,no significant weight gain,no significant weight loss,no visual/auditory hallucinations,no delusions, andno shortness of breath. For modifying factors, (rx).stable on prozac Angina/Chest PainReported by PatientHPIFor quality, patient reportspressureandhe avyness. For context, patient reportsexertional. For location, patient reportschestand__ substernal. For severity, patient reportsnot limiting. For duration, patient reportslasts minutes. For onset/timing, patient reportsintermittent. For aggravating factors, patient reportsnothing makes it worse. For associated symptoms, patient reportsno dyspnea,no decrease in exercise capacity,no fatigue,no nocturnal episodes,no resting episodes,no associated palpitations, andno associated dizziness. wellness DIANE Cano [address] [facility], [facility] [address], [place], [address], [facility] 08/18/2023 22:30:04 OBGyn Episode No OBEpisode recorded.
--- OUTSIDE RECORDS SUMMARY | 2025-09-24 13:53 | XMS_ITS | Clinical Summary ---
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
--- OUTSIDE RECORDS SUMMARY | 2025-09-24 13:53 | XMS_ITS | Clinical Summary ---
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
== END 2025-09-21 11:39 | disposition home or self-care (01) ==
LOC: ANHLAB 09-24 11:39
PROVIDERS: PCP Physician Assistant; Visit Provider Internal Medicine Gastroenterology
DX: K63.5 Polyp of colon (principal)
CPT/HCPCS: 88305